=== PATIENT | male | born 1995 | race Caucasian/White ===

== ENCOUNTER → 2020-01-21 10:10 | Outpatient (BNVA) | payer OTHER, SELFPAY | PROVIDERS: PCP Internal Medicine; Visit Provider Physician Assistant Medical | DX: S33.9XXA Sprain of unspecified parts of lumbar spine and pelvis, initial encounter (principal); X50.0XXA Overexertion from strenuous movement or load, initial encounter | CPT/HCPCS: 99202 ==

== ENCOUNTER 2022-03-01 10:57 | Emergency (ER) | payer OTHER, SELFPAY ==
--- NOTE | ~2022-03-01 | XR_ITS ---
EXAMINATION: XR CHEST CLINICAL INFORMATION: Cough and congestion COMPARISON: Chest x-ray April 10, 2018 TECHNIQUE: 2 views of the chest were obtained. FINDINGS: Cardiac silhouette is normal in size. The lungs are well aerated. There is no lobar consolidation. No pleural effusion or pneumothorax. No acute osseous abnormality. XR/XR chest 2V IMPRESSION: No acute pulmonary pathology.
--- NOTE | 2022-03-01 11:39 | ED.URI ---
HPI - URI/Sore Throat General Chief Complaint: Upper Respiratory Symptoms <Erica Abdalla CNP - Last Filed: 03/01/22 11:47> Stated Complaint: coughing up phlegm, chest congestion <Erica Abdalla CNP - Last Filed: 03/01/22 11:47> Time Seen by Provider: 03/01/22 11:54 <Erica Abdalla CNP - Last Filed: 03/01/22 11:47> Source: patient <Rose Mary Acosta NP - Last Filed: 03/01/22 12:54> Mode of arrival: ambulatory <Rose Mary Acosta NP - Last Filed: 03/01/22 12:54> Limitations: no limitations <Rose Mary Acosta NP - Last Filed: 03/01/22 12:54> History of Present Illness HPI Narrative: 26 yo male with history of asthma,bronchitis here with 5 days of productive cough with yellow sputum with 48 hrs of fever initially none now. No diff breathing, chest pain, vomiting, diarrhea, skin rash, headache, neck pain or stiffness. <Rose Mary Acosta NP - Last Filed: 03/01/22 12:54> Related Data Home Medications: Previous Rx's Medication Instructions Recorded azithromycin 250 mg tablet See Rx Instructions PO .COMPLEX #6 03/01/22 tabs benzonatate 200 mg capsule 200 mg PO TID PRN cough #10 caps 03/01/22 prednisone 20 mg tablet 40 mg PO DAILY #10 tabs 03/01/22 <Erica Abdalla CNP - Last Filed: 03/01/22 11:47> Allergies/Adverse Reactions: Allergies Allergy/AdvReac Type Severity Reaction Status Date / Time No Known Allergies Allergy Verified 03/01/22 11:45 <Erica Abdalla CNP - Last Filed: 03/01/22 11:47> Review of Systems Review of Systems: Yes all other systems are reviewed and are negative <Rose Mary Acosta NP - Last Filed: 03/01/22 12:54> Constitutional: Constitutional: Reports no additional constitutional complaints, Denies body ache(s), Denies chills, Reports fever(s), Denies headache(s) and Denies weakness <Rose Mary Acosta NP - Last Filed: 03/01/22 12:54> Eyes: Eyes: Reports no additional eye complaints and Denies change in vision <Rose Mary Acosta NP - Last Filed: 03/01/22 12:54> ENT: Reports system reviewed and no additional complaints, except as documented, Denies dizziness, Denies headache(s), Denies nasal congestion, Denies nasal discharge and Denies neck pain <Rose Mary Acosta NP - Last Filed: 03/01/22 12:54> Cardiovascular: Cardiovascular: Reports no additional cardiovascular complaints, Denies chest pain, Denies leg edema and Denies dyspnea <Rose Mary Acosta NP - Last Filed: 03/01/22 12:54> Respiratory: Respiratory: Reports no additional respiratory complaints, Reports cough and Denies dyspnea <Rose Mary Acosta FOOD PROCESSOR - Last Filed: 03/01/22 12:54> Gastrointestinal: Gastrointestinal: Reports no additional gastrointestinal complaints, Denies abdominal pain, Denies diarrhea, Denies nausea and Denies vomiting <Rose Mary Acosta FOOD PROCESSOR - Last Filed: 03/01/22 12:54> Genitourinary: Genitourinary: Denies urinary incontinence <Rose Mary Acosta NP - Last Filed: 03/01/22 12:54> Musculoskeletal: Musculoskeletal: Reports no additional musculoskeletal complaints, Denies back pain, Denies arthralgias, Denies joint swelling, Denies neck pain, Denies numbness and Denies tingling <Rose Mary Acosta NP - Last Filed: 03/01/22 12:54> Integumentary/Breasts: Skin/Breast: Reports system reviewed and no additional complaints, except as docu and Denies rash <Rose Mary Acosta NP - Last Filed: 03/01/22 12:54> Neurologic: Reports system reviewed and no additional complaints, except as documented, Denies Abnormal speech present, Denies dizziness, Denies headache(s), Denies numbness, Denies tingling and Denies weakness <Rose Mary Acosta NP - Last Filed: 03/01/22 12:54> PMFSH Past Medical History Attestation statement: The following information was validated with the patient. <Rose Mary Acosta NP - Last Filed: 03/01/22 12:54> Source: old records reviewed and nursing notes reviewed <Rose Mary Acosta NP - Last Filed: 03/01/22 12:54> Social History Social History: Social History Advance Directives: No <Erica Abdalla CNP - Last Filed: 03/01/22 11:47> Physical Exam Vital Signs: Vital Signs: Last Vital Signs Temp 97.6 F 03/01/22 11:40 Pulse 96 03/01/22 11:40 Resp 18 03/01/22 11:40 BP 141/85 H 03/01/22 11:40 Pulse Ox 96 03/01/22 11:40 O2 Del Method 03/01/22 11:40 BMI result Body Mass Index 21.5 <Erica Abdalla CNP - Last Filed: 03/01/22 11:47> Vital Signs: Last Vital Signs Temp 97.6 F 03/01/22 11:40 Pulse 96 03/01/22 11:40 Resp 18 03/01/22 11:40 BP 141/85 H 03/01/22 11:40 Pulse Ox 96 03/01/22 11:40 O2 Del Method 03/01/22 11:40 BMI result Body Mass Index 21.5 <Rose Mary Acosta NP - Last Filed: 03/01/22 12:54> Const: General: cooperative, healthy appearing, comfortable and no acute distress <Rose Mary Acosta NP - Last Filed: 03/01/22 12:54> Orientation/consciousness: patient oriented x3 <Rose Mary Acosta NP - Last Filed: 03/01/22 12:54> Limitations: no limitations <Rose Mary Acosta NP - Last Filed: 03/01/22 12:54> HEENT: Head: Yes normal to inspection <Rose Mary Acosta NP - Last Filed: 03/01/22 12:54> Ears: hearing grossly normal bilaterally and TM's normal bilaterally <Rose Mary Acosta NP - Last Filed: 03/01/22 12:54> General nose exam: Normal external nose present <Rose Mary Acosta NP - Last Filed: 03/01/22 12:54> Face and sinus: Yes normal facial exam <Rose Mary Acosta FOOD PROCESSOR - Last Filed: 03/01/22 12:54> Mouth: Normal oral and palatal mucosa present <Rose Mary Acosta NP - Last Filed: 03/01/22 12:54> Throat: Yes posterior oropharynx normal, Yes tonsils normal and Yes uvula midline <Rose Mary Acosta FOOD PROCESSOR - Last Filed: 03/01/22 12:54> Eyes: General: appearance normal, both eyes and all related structures <Rose Mary Acosta NP - Last Filed: 03/01/22 12:54> Pupils: Equal, round and reactive pupils present <Rose Mary Acosta FOOD PROCESSOR - Last Filed: 03/01/22 12:54> Neck: Neck: Yes normal visual inspection <Rose Mary Acosta NP - Last Filed: 03/01/22 12:54> Chest: Chest palpation & inspection: normal inspection of the chest <Rose Mary Acosta NP - Last Filed: 03/01/22 12:54> Resp: Effort & Inspection: normal respiratory effort <Rose Mary Acosta NP - Last Filed: 03/01/22 12:54> Auscultation: clear to auscultation bilaterally <Rose Mary Acosta NP - Last Filed: 03/01/22 12:54> Cardio: Rate: regular rate <Rose Mary Acosta NP - Last Filed: 03/01/22 12:54> Rhythm: regular rhythm <Rose Mary Acosta NP - Last Filed: 03/01/22 12:54> Peripheral pulses: Peripheral pulses 2+ throughout <Rose Mary Acosta NP - Last Filed: 03/01/22 12:54> GI: Inspection: Yes normal to inspection <Rose Mary Acosta NP - Last Filed: 03/01/22 12:54> Palpation (GI): Soft to palpation and nontender <Rose Mary Acosta NP - Last Filed: 03/01/22 12:54> Auscultation: normal bowel sounds <Rose Mary Acosta NP - Last Filed: 03/01/22 12:54> Back/Spine/Pelvis: Thoracic/Lumbar Spine: thoracic and lumbar spine normal to inspection <Rose Mary Acosta NP - Last Filed: 03/01/22 12:54> Skin: General skin exam: no rashes or lesions noted <Rose Mary Acosta NP - Last Filed: 03/01/22 12:54> Neuro: General: patient oriented x3, no focal motor deficits and normal sensation to monofilament <Rose Mary Acosta FOOD PROCESSOR - Last Filed: 03/01/22 12:54> Cranial nerves: Yes Equal, round and reactive pupils present <Rose Mary Acosta NP - Last Filed: 03/01/22 12:54> Cognition (Neuro): normal cognition <Rose Mary Acosta NP - Last Filed: 03/01/22 12:54> Speech: No Abnormal speech present <Rose Mary Acosta NP - Last Filed: 03/01/22 12:54> Gait exam (Neuro): Normal gait present <Rose Mary Acosta NP - Last Filed: 03/01/22 12:54> Motor exam (neuro): 5/5 motor strength present throughout <Rose Mary Acosta NP - Last Filed: 03/01/22 12:54> Extrem: General: Yes normal to inspection, Yes no pedal edema and Yes no calf tenderness <Rose Mary Acosta NP - Last Filed: 03/01/22 12:54> Course Course Course Narrative: RME: Patient is a 26-year-old male with a past medical history of asthma presenting to emergency department evaluation of upper respiratory symptoms over the past 5 days. Initially had a fever resolved after the 1st 2 days. Currently reporting productive cough with yellow phlegm, postnasal drip, chest congestion. Has trialed Robitussin, home nebulizers and inhalers, Singulair, Mucinex without significant improvement. Reports history of bronchitis and states he is concern for pneumonia. PE: No apparent distress. Speaking clear full sentences. LSCTA. Plan: COVID-19 testing, influenza testing, chest x-ray <Erica Abdalla CNP - Last Filed: 03/01/22 11:47> Reevaluation(s) Reevaluation #1: 1250-Testing for influenza, covid testing. CXR negative for PNA. Will treat for bronchitis with antibiotic course, prednisone, cough suppressant. Reviewed worrisome signs/symptoms with patient and when to seek additional care. Comfortable with discharge home. <Rose Mary Acosta NP - Last Filed: 03/01/22 12:54> MDM - URI/Sore Throat MDM Narrative Medical decision making narrative: 26 yo male with history of asthma,bronchitis here with 5 days of productive cough with yellow sputum with 48 hrs of fever initially none now. No diff breathing, chest pain, vomiting, diarrhea, skin rash, headache, neck pain or stiffness. LS CTA. VSS. Will send testing flu, covid, CXR PERC 0 <Rose Mary Acosta NP - Last Filed: 03/01/22 12:54> Differential Diagnosis Differential diagnosis: Likely upper respiratory infection and bronchitis <Rose Mary Acosta NP - Last Filed: 03/01/22 12:54> Medical Records Attestation: I reviewed the patient's medical records. <Rose Mary Acosta NP - Last Filed: 03/01/22 12:54> Lab Data Attestation: I reviewed the patient's lab results. <Rose Mary Acosta NP - Last Filed: 03/01/22 12:54> Labs: Lab Results 03/01/22 03/01/22 Range/Units 11:47 11:47 COVID-19 ([facility]RELLA) Negative (Negative) COVID-19 Clin Com See Note Influenza Type A ([facility]) Negative (Negative) Influenza Type B ([facility]) Negative (Negative) Influenza A & B Note See Note <Erica Abdalla CNP - Last Filed: 03/01/22 11:47> Lab Results 03/01/22 03/01/22 Range/Units 11:47 11:47 COVID-19 ([facility]RELLA) Negative (Negative) COVID-19 Clin Com See Note Influenza Type A ([facility]) Negative (Negative) Influenza Type B ([facility]Y) Negative (Negative) Influenza A & B Note See Note <Rose Mary Acosta NP - Last Filed: 03/01/22 12:54> Imaging Data Chest x-ray: Attestation: I personally reviewed and interpreted this imaging study as follows: <Rose Mary Acosta NP - Last Filed: 03/01/22 12:54> Radiologist's impression: Launch?Image [place] [id number] XRay Report Signed Patient: Estrada Yarbrough MR#: [id number] : 1995 Acct:[id number] Age/Sex: 26 / M ADM Date: 03/01/22 Loc: HO.ED Attending Dr: Ordering Physician: Erica Abdalla CNP Date of Service: 03/01/22 Procedure(s): XR chest 2V Accession Number(s): [id number] cc: Erica Abdalla CNP~ EXAMINATION: XR CHEST CLINICAL INFORMATION: Cough and congestion COMPARISON: Chest x-ray April 10, 2018 TECHNIQUE: 2 views of the chest were obtained. FINDINGS: Cardiac silhouette is normal in size. The lungs are well aerated. There is no lobar consolidation. No pleural effusion or pneumothorax. No acute osseous abnormality. XR/XR chest 2V IMPRESSION: No acute pulmonary pathology. ? <Rose Mary Acosta NP - Last Filed: 03/01/22 12:54> Discharge Plan Discharge Clinical Impression: Bronchitis <Erica Abdalla CNP - Last Filed: 03/01/22 11:47> Patient Disposition: Home, Self-Care <Erica Abdalla CNP - Last Filed: 03/01/22 11:47> Instructions: Acute Bronchitis (ED) <Erica Abdalla CNP - Last Filed: 03/01/22 11:47> Additional Instructions: Testing for flu/covid are negative X-ray negative for pneumonia <Erica Abdalla CNP - Last Filed: 03/01/22 11:47> Prescriptions: New azithromycin 250 mg tablet See Rx Instructions .ROUTE .COMPLEX Qty: 6 0RF Rx Instructions: For 250 mg dose pack: take 500 mg today (day 1), then 250 mg for 4 days (days 2-5) prednisone 20 mg tablet 40 mg PO DAILY Qty: 10 0RF benzonatate 200 mg capsule 200 mg PO TID PRN (Reason: cough) Qty: 10 0RF <Erica Abdalla CNP - Last Filed: 03/01/22 11:47> Referrals: Freddy Mcdonald MD [Primary Care Provider] - 1 week <Erica Abdalla CNP - Last Filed: 03/01/22 11:47> Stand Alone Forms: Work/School Release <Erica Abdalla CNP - Last Filed: 03/01/22 11:47>
[2022-03-01 11:40] VITALS: BP 141/85; PULSE 96; RESP 18; TEMP 36.4; O2SAT 96; BMI 21.5
[2022-03-01 12:13] LABS: COVID-19 Test Negative (Negative); IDNOW Serial# 9DB6401D; IDNOW Serial# BCCEAD1C; Influenza A Negative (Negative); Influenza B2 Negative (Negative)
== END 2022-03-01 12:59 | disposition home or self-care (01) ==
PROVIDERS: Nurse Practitioner Family; Emergency Provider Emergency Medicine Emergency Medical Services; PCP Internal Medicine
DX: J40 Bronchitis, not specified as acute or chronic (principal); Z20.822 Contact with and (suspected) exposure to COVID-19
CPT/HCPCS: 71046; 87502; 87635; 99282; 99283

== ENCOUNTER 2022-03-21 11:40 | Outpatient (REF) | payer OTHER, SELFPAY ==
[2022-03-21 12:04] LABS: MANUAL DIFF FLAG NO
[2022-03-21 12:12] LABS: Basophils Percent Auto 0.5 % (0-2); Eosinophils Absolute Auto 0.1 X10*3/uL (0.0-0.4); Eosinophils Percent Auto 1.1 % (0-4); Hematocrit 45.5 % (42.0-52.0); Hemoglobin 14.8 g/dl (14.0-18.0); Imm Gran Abs Auto 0.02 X10*3/uL (0.00-0.03); Imm Gran Pct Auto 0.2 % (0.0-0.4); Lymphocytes Absolute Auto 1.2 X10*3/uL (1.2-4.9); Lymphocytes Percent Auto 14.5 % (20-40); Mean Corpuscular HGB Conc 32.5 g/dl (31.0-36.0); Mean Corpuscular Hemoglobin 28.6 pg (27.0-33.0); Mean Platelet Volume 10.6 fL (9.4-12.4); Monocytes Absolute Auto 0.8 X10*3/uL (0.1-1.2); Monocytes Percent Auto 8.8 % (2-11); Neutrophils Absolute Auto 6.4 x10*3/uL (2.0-8.3); Neutrophils Percent Auto 74.9 % (45-73); Platelet Count 261 X10*3/uL (160-400); Red Blood Count 5.17 X10*6/uL (4.60-5.80); Red Cell Distribution Width 12.7 % (11.0-16.0); White Blood Count 8.5 X10*3/uL (4.8-10.8)
[2022-03-21 12:21] LABS: D Dimer High Sensitivity 316 NG/ML
[2022-03-21 12:54] LABS: Erythrocyte Sedimentation Rate 2 MM/HR (0-15)
[2022-03-21 13:21] LABS: Anion Gap 13 (12-20); Blood Urea Nitrogen 15 mg/dL (9-16); Calcium 9.4 mg/dL (8.4-10.2); Carbon Dioxide 28 mmol/L (22-29); Chloride 104 mmol/L (96-108); Estimated Glomerular Filt Rate > 60; Glucose Random 135 mg/dL (60-115); Potassium 4.5 mmol/L (3.3-5.1); Sodium 140 mmol/L (135-145)
== END 2022-03-21 11:41 | disposition home or self-care (01) ==
LOC: HO.LAB 11:40
PROVIDERS: PCP Internal Medicine; Visit Provider Hospitalist
DX: J40 Bronchitis, not specified as acute or chronic (principal); J45.40 Moderate persistent asthma, uncomplicated; R07.81 Pleurodynia; R79.89 Other specified abnormal findings of blood chemistry
CPT/HCPCS: 36415; 80048; 82785; 85025; 85379; 85652; 86003; 99202

== ENCOUNTER 2022-03-22 11:19 | Outpatient (REF) | payer OTHER, SELFPAY ==
--- NOTE | ~2022-03-22 | CT_ITS ---
EXAMINATION: CT ANGIOGRAM OF THE CHEST WITH AND WITHOUT CONTRAST (CT PULMONARY ANGIOGRAM FOR PE) CLINICAL INFORMATION: Reason for Exam R07.81 - Pleurodynia COMPARISON: Previous chest x-ray February 2022 TECHNIQUE: Prior to contrast administration, noncontrast localization images were obtained. Subsequently, multidetector volumetric imaging was performed from the thoracic inlet to below the diaphragms following the administration of 60 mL Omnipaque 350 intravenous contrast. No contrast reaction reported Sagittal, coronal, and MIP oblique sagittal reformatted images were obtained on the CT workstation, uploaded to PACS, and reviewed. This CT examination was performed using dose optimization techniques as appropriate, variously including the following: *Automated exposure control *Adjustment of mA and/or kV according to patient size (this includes techniques or standardized protocols for targeted exams where dose is matched to indication/reason for exam; i.e. extremities or head) *Use of iterative reconstruction technique Total exam dose-length product 140 mGy-cm FINDINGS: QUALITY OF STUDY/CONTRAST BOLUS: Satisfactory. PULMONARY ARTERIES: No central or segmental pulmonary emboli. THORACIC AORTA: No aneurysm or dissection. LUNG: Mild bronchial wall thickening. No pneumonia. PLEURA: No pleural effusion or pneumothorax. MEDIASTINUM: Normal heart size. No pericardial effusion. Small mediastinal and left hilar lymph nodes. No enlarged lymph nodes.. No evidence of septal bowing or right heart strain. CHEST WALL/AXILLA: No axillary or internal mammary lymphadenopathy. OSSEOUS STRUCTURES: No acute or suspicious osseous abnormality. UPPER ABDOMEN: Unremarkable. No reflux of contrast into the hepatic veins to suggest elevated right heart pressures. CT/CT angio chest PE protocol IMPRESSION: No evidence of pulmonary embolism. Mild bronchial wall thickening. No evidence of pneumonia. Small mediastinal and left hilar lymph nodes. VTE: negative
[2022-03-22] MEDS: iohexoL 350 MG/ML 100 ML INFUS..BTL 60 ML IV (12:15)
== END 2022-03-22 11:20 | disposition home or self-care (01) ==
LOC: HO.CT 11:19
PROVIDERS: PCP Internal Medicine; Visit Provider Hospitalist
DX: R07.81 Pleurodynia (principal); R78.89 Finding of other specified substances, not normally found in blood
CPT/HCPCS: 71275; Q9967

== ENCOUNTER 2022-03-29 07:52 | Outpatient (REF) | payer OTHER, SELFPAY | END 2022-03-29 07:53 | disposition home or self-care (01) | LOC: HO.RESP 07:52 | PROVIDERS: PCP Internal Medicine; Visit Provider Hospitalist | DX: R07.81 Pleurodynia (principal); J45.40 Moderate persistent asthma, uncomplicated; J40 Bronchitis, not specified as acute or chronic | CPT/HCPCS: 87070; 87205; 94060; 94727; 94729 ==

== ENCOUNTER → 2022-04-11 10:05 | Outpatient (BNVA) | payer OTHER, SELFPAY | PROVIDERS: PCP Internal Medicine; Visit Provider Hospitalist | DX: J45.50 Severe persistent asthma, uncomplicated (principal); J40 Bronchitis, not specified as acute or chronic; R07.81 Pleurodynia; Z79.899 Other long term (current) drug therapy | CPT/HCPCS: 99212 ==

== ENCOUNTER 2022-10-25 09:30 | Outpatient (AMB) | payer OTHER, SELFPAY ==
[2022-10-25 09:32] VITALS: BP 124/66; PULSE 66; O2SAT 95; BMI 24.9
--- NOTE | 2022-10-25 09:32 | MHC.OFFVIS ---
Intake Vital Signs 10/25/22 09:32 Height 5 ft 11 in Weight 178 lb 9.191 oz BMI 24.9 BP 124/66 Blood Pressure Location Rt brachial Position Sitting Pulse 66 Pulse Source Pulse Oximeter Pulse Oximetry (%) 95 Oxygen Delivery Method Room Air Intake Visit Reasons: [facility] Director Required: No Allergies No Known Allergies Allergy (Verified 10/25/22 09:35) HPI HPI Comments History of Present Illness Details The patient is a 27-year-old gentleman with a lifelong history of asthma. Apparently was in usual state health until sometime in the another member when he started developing worsening shortness of breath cough. Having significant wheezing. His symptoms were severe. He went to the ER for further evaluation. There he had a chest x-ray demonstrating hyperinflation of the lungs. He tested negative for RSV, flu and COVID-19. He was treated with a prednisone course in addition to Z-Aguila and given benzonatate. He was not feeling any better continue to uses nebulizer a daily basis. He got some Symbicort from his sister and felt that it was helping him. Now he still complains some shortness of breath and now complaining of pleuritic discomfort primarily his right mid chest. He feels the pain travels from the back to the front. The pain is not reproducible. Based on the fact that his pulse ox was also slightly decreased to 94% and with a normal chest x-ray did request blood work including D-dimer. The D-dimer came back elevated therefore patient needs to ruled out for a thromboembolic event. His pleuritic chest pain is moderate severity. Definite stops in from breathing deeply. As far as his wheezing and chest tightness that is improved. He does have productive cough. He was yellowish in color but now is clearing up some. As far as allergies the patient has had allergy testing many years ago he was noted to have significant allergies. He was offered allergy shots but the patient did not have the time to commit that time. He is currently taking Singulair and as-needed antihistamines. 04/11/2022 the patient is here for a pulmonary follow-up visit. Overall he is feeling a lot better. He continues uses Symbicort as prescribed. Also has the singular medication. Has not required any prednisone. He does have a rescue inhaler that he typically does not use more than twice a week. The patient did have blood work including allergy testing demonstrating significant allergies to environmental allergens in addition to mold. His IgE level was above 800. He is eosinophil level was within normal limits. The patient likely has significant allergic asthma. His pulmonary function studies also demonstrated uncontrolled asthma. Significant small airways disease suggesting the severity of his asthma in addition to that he did undergo a CT scan of the chest that I personally reviewed him. No evidence of any pulmonary emboli. Although he did have significant mosaic pattern consistent with his small airways disease and also significant bronchitis. This is all related to his asthma. At this point the patient is doing well. We did talk about additional therapies including adding muscarinic antagonist. In addition to that he would benefit from allergy shots. Although is difficult making the time for that. The other option for him in the future if he worsens will be to start biologic therapy. Will continue to monitor him closely at this time as he continues his allergy medicines and his maintenance respiratory inhalers. 10/25/2022 the patient is here for pulmonary follow-up visit. The patient is feeling well. He is using the Symbicort every other day. He has not had to use his rescue medicine. We did go over his allergies. He has significant allergies. Specially to mold and dust mites. He does have any appear far not the humidifier running in the house. This has been helpful. She also has a dog that is very allergic to. He has been on allergy medication. Does not need any biologic therapies at this time. The patient will continue his current Symbicort dose. Although, he knows to increase does prior to transitioning over to a different season. The patient usually has worsening symptoms in the winter time. He will call if he has any issues otherwise will see him in a year from now [facility] Medical History (Updated 04/11/22 @ 19:27 by Mehdi Bridges MD) Asthma Bronchitis Pleuritic chest pain Social History Patient Tobacco Use Status: Never used Tobacco Review of Systems Const Denies fever(s) Eyes Denies change in vision ENT Reports nasal congestion and Reports nasal discharge Card Denies chest pain Resp Denies change in phlegm color, Denies chest congestion, Reports cough, Denies pain on inspiration, Denies pain with cough and Denies wheezing GI Reports no additional complaints Musc Reports no additional complaints Skin/Breast Denies rash Neuro Reports no additional complaints Tariq/Lymph Denies easy bleeding and Denies easy bruising Aller/Immun Denies wheezing Physical Exam Vital Signs: Last Vital Signs Pulse 66 10/25/22 09:32 BP 124/66 10/25/22 09:32 Pulse Ox 95 10/25/22 09:32 Oxygen Delivery Method Room Air 10/25/22 09:32 BMI result Body Mass Index 24.9 Const General: comfortable HEENT Head: Yes atraumatic Eyes General: appearance normal, both eyes and all related structures Neck Neck: Yes supple Chest Chest palpation & inspection: normal inspection of the chest Resp Effort & Inspection: normal respiratory effort Auscultation: clear to auscultation bilaterally, no rales, no rhonchi and no wheezes GI Auscultation: normal bowel sounds Skin General skin exam: no rashes or lesions noted Extrem General: Yes no clubbing, cyanosis or edema Assessment & Plan Assessment & Plan (1) Asthma: Code(s): J45.909 - Unspecified asthma, uncomplicated Qualifiers: Asthma complication type: uncomplicated Asthma persistence: persistent Asthma severity: severe Qualified Code(s): J45.50 - Severe persistent asthma, uncomplicated (2) Pleuritic chest pain: Comment: better Code(s): R07.81 - Pleurodynia Plan continue Symbicort continue Singulair Zyrte AM Consider Biologic therapy if worsens Follow-up in 12 months Coding Level of Care Code Est Pt Level 4 (25354) Diagnoses Asthma J45.50 Asthma complication type: uncomplicated Asthma persistence: persistent Asthma severity: severe Pleuritic chest pain R07.81 Time Spent (min) 17
== END 2022-10-25 09:54 | disposition home or self-care (01) ==
PROVIDERS: PCP Internal Medicine; Visit Provider Hospitalist
DX: J45.50 Severe persistent asthma, uncomplicated (principal); R07.81 Pleurodynia
CPT/HCPCS: 99214

== ENCOUNTER → 2022-10-25 09:30 | Outpatient (BNVA) | payer OTHER, SELFPAY | PROVIDERS: PCP Internal Medicine; Visit Provider Hospitalist | DX: J45.50 Severe persistent asthma, uncomplicated (principal); R07.81 Pleurodynia; Z79.899 Other long term (current) drug therapy | CPT/HCPCS: 99212 ==

== ENCOUNTER 2023-07-25 10:41 | Outpatient (REF) | payer OTHER, SELFPAY ==
[2023-07-25 10:45] LABS: MANUAL DIFF FLAG NO
[2023-07-25 11:04] LABS: Basophils Absolute Auto 0.1 X10*3/uL (0.0-0.2); Basophils Percent Auto 1.2 % (0-2); Eosinophils Absolute Auto 0.5 X10*3/uL (0.0-0.4); Eosinophils Percent Auto 6.3 % (0-4); Hematocrit 44.9 % (42.0-52.0); Imm Gran Abs Auto 0.02 X10*3/uL (0.00-0.03); Imm Gran Pct Auto 0.3 % (0.0-0.4); Lymphocytes Absolute Auto 2.4 X10*3/uL (1.2-4.9); Mean Corpuscular HGB Conc 33.4 g/dl (31.0-36.0); Mean Corpuscular Hemoglobin 29.1 pg (27.0-33.0); Mean Corpuscular Volume 87.2 fL (80.0-98.0); Mean Platelet Volume 11.8 fL (9.4-12.4); Monocytes Absolute Auto 0.9 X10*3/uL (0.1-1.2); Monocytes Percent Auto 11.4 % (2-11); Neutrophils Absolute Auto 3.9 x10*3/uL (2.0-8.3); Neutrophils Percent Auto 49.8 % (45-73); Platelet Count 288 X10*3/uL (160-400); Red Blood Count 5.15 X10*6/uL (4.60-5.80); Red Cell Distribution Width 12.6 % (11.0-16.0); White Blood Count 7.7 X10*3/uL (4.8-10.8)
[2023-07-25 11:08] LABS: Appearance Urine Clear; Color Urine Yellow; Glucose Urine UA Negative (Negative); Leukocyte Esterase Urine Negative (Negative); Nitrite Urine Negative (Negative); PH 5.5 (5.0-9.0); Specific Gravity - Urine >= 1.030 (1.005-1.025); Urine Blood Negative (Negative); Urine Ketones Negative (Negative); Urine Protein Negative (Neg-Trace)
[2023-07-25 11:15] LABS: Bacteria Urine None Seen (None Seen); Hyaline Casts Urine 0-2 /LPF (0-2); RBC Urine 0-2 /HPF (0-2); Squamous Epithelial Cell Urine 0-2 /HPF (0-2); WBC Urine 0-5 /HPF (0-5)
[2023-07-25 12:08] LABS: Alanine Aminotransferase 28 U/L (0-40); Albumin Level 4.4 g/dL (3.5-5.0); Alkaline Phosphatase 76 U/L (39-117); Anion Gap 11 (12-20); Aspartate Amino Transferase 25 U/L (5-37); Bilirubin Total 0.4 mg/dL (0.0-1.0); Blood Urea Nitrogen 15 mg/dL (9-16); Calcium 9.4 mg/dL (8.4-10.2); Carbon Dioxide 27 mmol/L (22-29); Chloride 107 mmol/L (96-108); Cholesterol 182 mg/dL (<200); Estimated Glomerular Filt Rate > 60; Glucose Fasting 104 mg/dL (60-99); HDL Cholesterol 38 mg/dL (>40); LDL Cholesterol Calculated 124 mg/dL (<100); Potassium 4.2 mmol/L (3.3-5.1); Sodium 141 mmol/L (135-145); Total Protein 6.7 g/dL (6.5-8.0); Triglycerides 102 mg/dL (<150)
== END 2023-07-25 10:42 | disposition home or self-care (01) ==
LOC: HO.LNP 10:41
PROVIDERS: Visit Provider Internal Medicine
DX: Z00.00 Encounter for general adult medical examination without abnormal findings (principal)
CPT/HCPCS: 80053; 80061; 81001; 85025

== ENCOUNTER 2023-08-21 14:40 | Outpatient (AMB) | payer OTHER, SELFPAY ==
[2023-08-21 14:46] VITALS: PULSE 68; O2SAT 95; BMI 25.1
--- NOTE | 2023-08-21 14:46 | MHC.OFFVIS ---
Vital Signs 08/21/23 14:46 Height 5 ft 11 in Weight 180 lb BMI 25.1 Pulse 68 Pulse Source Pulse Oximeter Pulse Oximetry (%) 95 Oxygen Delivery Method Room Air Intake Visit Reasons: asthma exacerbation Manager Sql Required: No Allergies No Known Allergies Allergy (Verified 08/21/23 14:47) HPI Comments Details: The patient is a 28-year-old gentleman with a lifelong history of asthma. Apparently was in usual state health until sometime in the another member when he started developing worsening shortness of breath cough. Having significant wheezing. His symptoms were severe. He went to the ER for further evaluation. There he had a chest x-ray demonstrating hyperinflation of the lungs. He tested negative for RSV, flu and COVID-19. He was treated with a prednisone course in addition to Z-Aguila and given benzonatate. He was not feeling any better continue to uses nebulizer a daily basis. He got some Symbicort from his sister and felt that it was helping him. Now he still complains some shortness of breath and now complaining of pleuritic discomfort primarily his right mid chest. He feels the pain travels from the back to the front. The pain is not reproducible. Based on the fact that his pulse ox was also slightly decreased to 94% and with a normal chest x-ray did request blood work including D-dimer. The D-dimer came back elevated therefore patient needs to ruled out for a thromboembolic event. His pleuritic chest pain is moderate severity. Definite stops in from breathing deeply. As far as his wheezing and chest tightness that is improved. He does have productive cough. He was yellowish in color but now is clearing up some. As far as allergies the patient has had allergy testing many years ago he was noted to have significant allergies. He was offered allergy shots but the patient did not have the time to commit that time. He is currently taking Singulair and as-needed antihistamines. 04/11/2022 the patient is here for a pulmonary follow-up visit. Overall he is feeling a lot better. He continues uses Symbicort as prescribed. Also has the singular medication. Has not required any prednisone. He does have a rescue inhaler that he typically does not use more than twice a week. The patient did have blood work including allergy testing demonstrating significant allergies to environmental allergens in addition to mold. His IgE level was above 800. He is eosinophil level was within normal limits. The patient likely has significant allergic asthma. His pulmonary function studies also demonstrated uncontrolled asthma. Significant small airways disease suggesting the severity of his asthma in addition to that he did undergo a CT scan of the chest that I personally reviewed him. No evidence of any pulmonary emboli. Although he did have significant mosaic pattern consistent with his small airways disease and also significant bronchitis. This is all related to his asthma. At this point the patient is doing well. We did talk about additional therapies including adding muscarinic antagonist. In addition to that he would benefit from allergy shots. Although is difficult making the time for that. The other option for him in the future if he worsens will be to start biologic therapy. Will continue to monitor him closely at this time as he continues his allergy medicines and his maintenance respiratory inhalers. 10/25/2022 the patient is here for pulmonary follow-up visit. The patient is feeling well. He is using the Symbicort every other day. He has not had to use his rescue medicine. We did go over his allergies. He has significant allergies. Specially to mold and dust mites. He does have any appear far not the humidifier running in the house. This has been helpful. She also has a dog that is very allergic to. He has been on allergy medication. Does not need any biologic therapies at this time. The patient will continue his current Symbicort dose. Although, he knows to increase does prior to transitioning over to a different season. The patient usually has worsening symptoms in the winter time. He will call if he has any issues otherwise will see him in a year from now 08/21/2023 the patient is here for a pulmonary follow-up visit. The patient has been in his usual state health until the last 5 days when he started developing worsening respiratory illness. He has been coughing more having chest congestion. Chest tightness. He has been having to use his Symbicort now regularly twice a day. Also has to use the albuterol in between. Denies any fevers or chills. Positive sick contacts. His actively coughing in the room. He does have diminished breath sounds with a prolonged expiratory phase and some rhonchi. Patient will require some antibiotics at this time. She will continue to use her respiratory medicines. The patient is no better, then, he could start a Medrol pack. Patient should return in 6-8 months. If any worsening symptoms he will call for an earlier assessment. [facility] Medical History (Updated 08/21/23 @ 22:10 by Mehdi Bridges MD) Pleuritic chest pain Bronchitis Asthma Social History Patient Tobacco Use Status: Never used Tobacco Review of Systems Const Denies fever(s) Eyes Denies change in vision ENT Reports nasal congestion and Reports nasal discharge Card Denies chest pain Resp Reports change in phlegm color, Reports chest congestion, Reports cough, Denies pain on inspiration, Denies pain with cough and Reports wheezing GI Reports no additional complaints Musc Reports no additional complaints Skin/Breast Denies rash Neuro Reports no additional complaints Tariq/Lymph Denies easy bleeding and Denies easy bruising Aller/Immun Reports wheezing Physical Exam Vital Signs: Last Vital Signs Pulse 68 08/21/23 14:46 Pulse Ox 95 08/21/23 14:46 Oxygen Delivery Method Room Air 08/21/23 14:46 BMI result Body Mass Index 25.1 Const General: comfortable HEENT Head: Yes atraumatic Eyes General: appearance normal, both eyes and all related structures Neck Neck: Yes supple Chest Chest palpation & inspection: normal inspection of the chest Resp Effort & Inspection: normal respiratory effort and Actively coughing Quality: actively coughing Auscultation: clear to auscultation bilaterally, no rales, no rhonchi and wheezes GI Auscultation: normal bowel sounds Skin General skin exam: no rashes or lesions noted Extrem General: Yes no clubbing, cyanosis or edema Assessment & Plan Assessment & Plan (1) Asthma: Code(s): J45.909 - Unspecified asthma, uncomplicated Category: Medical Qualifiers: Asthma complication type: with acute exacerbation Asthma persistence: persistent Asthma severity: moderate Qualified Code(s): J45.41 - Moderate persistent asthma with (acute) exacerbation (2) Bronchitis: Code(s): J40 - Bronchitis, not specified as acute or chronic Category: Medical Plan continue Symbicort continue Singulair BRANDY as needed Zyrtec AM start Zpack Medrol pk if no better Consider Biologic therapy if worsens Follow-up in 12 months Medications: New azithromycin 500 mg PO DAILY 5 tabs 0RF 5 days methylprednisolone (Medrol (Aguila)) PO PER PKG DIR 21 ea 0RF 6 days Changed From albuterol sulfate 90 mcg/actuation 2 puffs inhalation Q4-6H PRN 1 ea 0RF shortness of breath or wheezing NS To albuterol sulfate 90 mcg/actuation 2 puffs inhalation Q6H PRN 1 ea 11RF shortness of breath or wheezing 30 days NS Refilled budesonide-formoterol 160-4.5 mcg/actuation (Symbicort) 2 puffs inhalation BID 10.2 grams 11RF 30 days Coding Level of Care Code Est Pt Level 4 (20929) Diagnoses Moderate persistent asthma with acute exacerbation J45.41 Asthma complication type: with acute exacerbation Asthma persistence: persistent Asthma severity: moderate Bronchitis J40 Time Spent (min) 16
== END 2023-08-21 15:05 | disposition home or self-care (01) ==
PROVIDERS: PCP Internal Medicine; Visit Provider Hospitalist
DX: J45.41 Moderate persistent asthma with (acute) exacerbation (principal); J40 Bronchitis, not specified as acute or chronic
CPT/HCPCS: 99214

== ENCOUNTER → 2023-08-21 14:40 | Outpatient (BNVA) | payer OTHER, SELFPAY | PROVIDERS: PCP Internal Medicine; Visit Provider Hospitalist ==

== ENCOUNTER 2024-03-15 14:42 | Outpatient (AMB) | payer OTHER, SELFPAY ==
[2024-03-15 14:45] VITALS: BP 118/82; PULSE 63; O2SAT 97; BMI 25.1
--- NOTE | 2024-03-15 14:45 | A.OFFVIS_ITS ---
Vital Signs 03/15/24 14:45 Height 5 ft 11 in Weight 179 lb 10.828 oz BMI 25.1 BP 118/82 Blood Pressure Location Lt brachial Position Sitting Pulse 63 Pulse Source Doppler Pulse Oximetry (%) 97 Oxygen Delivery Method Room Air Intake Visit Reasons: asthma Allergies No Known Allergies Allergy (Verified 03/15/24 14:48) HPI Comments Details: The patient is a 28-year-old gentleman with a lifelong history of asthma. Apparently was in usual state health until sometime in the another member when he started developing worsening shortness of breath cough. Having significant wheezing. His symptoms were severe. He went to the ER for further evaluation. There he had a chest x-ray demonstrating hyperinflation of the lungs. He tested negative for RSV, flu and COVID-19. He was treated with a prednisone course in addition to Z-Aguila and given benzonatate. He was not feeling any better continue to uses nebulizer a daily basis. He got some Symbicort from his sister and felt that it was helping him. Now he still complains some shortness of breath and now complaining of pleuritic discomfort primarily his right mid chest. He feels the pain travels from the back to the front. The pain is not reproducible. Based on the fact that his pulse ox was also slightly decreased to 94% and with a normal chest x-ray did request blood work including D-dimer. The D-dimer came back elevated therefore patient needs to ruled out for a thromboembolic event. His pleuritic chest pain is moderate severity. Definite stops in from breathing deeply. As far as his wheezing and chest tightness that is improved. He does have productive cough. He was yellowish in color but now is clearing up some. As far as allergies the patient has had allergy testing many years ago he was noted to have significant allergies. He was offered allergy shots but the patient did not have the time to commit that time. He is currently taking Singulair and as-needed antihistamines. 04/11/2022 the patient is here for a pulmonary follow-up visit. Overall he is feeling a lot better. He continues uses Symbicort as prescribed. Also has the singular medication. Has not required any prednisone. He does have a rescue inhaler that he typically does not use more than twice a week. The patient did have blood work including allergy testing demonstrating significant allergies to environmental allergens in addition to mold. His IgE level was above 800. He is eosinophil level was within normal limits. The patient likely has significa nt allergic asthma. His pulmonary function studies also demonstrated uncontrolled asthma. Significant small airways disease suggesting the severity of his asthma in addition to that he did undergo a CT scan of the chest that I personally reviewed him. No evidence of any pulmonary emboli. Although he did have significant mosaic pattern consistent with his small airways disease and also significant bronchitis. This is all related to his asthma. At this point the patient is doing well. We did talk about additional therapies including adding muscarinic antagonist. In addition to that he would benefit from allergy shots. Although is difficult making the time for that. The other option for him in the future if he worsens will be to start biologic therapy. Will continue to monitor him closely at this time as he continues his allergy medicines and his maintenance respiratory inhalers. 10/25/2022 the patient is here for pulmonary follow-up visit. The patient is feeling well. He is using the Symbicort every other day. He has not had to use his rescue medicine. We did go over his allergies. He has significant allergies. Specially to mold and dust mites. He does have any appear far not the humidifier running in the house. This has been helpful. She also has a dog that is very allergic to. He has been on allergy medication. Does not need any biologic therapies at this time. The patient will continue his current Symbicort dose. Although, he knows to increase does prior to transitioning over to a different season. The patient usually has worsening symptoms in the winter time. He will call if he has any issues otherwise will see him in a year from now 08/21/2023 the patient is here for a pulmonary follow-up visit. The patient has been in his usual state health until the last 5 days when he started developing worsening respiratory illness. He has been coughing more having chest congestion. Chest tightness. He has been having to use his Symbicort now r egularly twice a day. Also has to use the albuterol in between. Denies any fevers or chills. Positive sick contacts. His actively coughing in the room. He does have diminished breath sounds with a prolonged expiratory phase and some rhonchi. Patient will require some antibiotics at this time. She will continue to use her respiratory medicines. The patient is no better, then, he could start a Medrol pack. Patient should return in 6-8 months. If any worsening symptoms he will call for an earlier assessment. 03/15/2024 the patient is here for a pulmonary follow-up visit. Overall he is feeling better. Although beginning of the fall was hard for him. He has had developing worsening chest tightness and coughing wheezing. Moderate severity. He had been using his nebulizer up to 3 times a day. Now has gotten better. Although he still bringing up some productive phlegm. Yellowish in color. He has been using Flovent and also Symbicort. Did do not seem to be holding him. He does get bad allergies with significant eosinophilia and elevated IgE. Consistent with eosinophilic bronchitis. Still the patient is reluctant to use biologics. Will going to go ahead and optimize his respiratory therapy by switching her over to Trelegy. He can also continue his Singulair. If he continues to have symptoms on the maximum respiratory therapy then biologics will be a good option for him. [facility] Medical History (Updated 08/21/23 @ 22:10 by Mehdi Bridges MD) Pleuritic chest pain Bronchitis Asthma Social History Patient Tobacco Use Status: Never used Tobacco Review of Systems Const Denies fever(s) Eyes Denies change in vision ENT Reports nasal congestion and Reports nasal discharge Card Denies chest pain Resp Reports change in phlegm color, Reports chest congestion, Reports cough, Denies pain on inspiration, Denies pain with cough and Reports wheezing GI Reports no additional complaints Musc Reports no additional complaints Skin/Breast Denies rash Neuro Reports no additional complaints Tariq/Lymph Denies easy bleeding and Denies easy bruising Aller/Immun Reports wheezing Physical Exam Vital Signs: Last Vital Signs Pulse 63 03/15/24 14:45 BP 118/82 03/15/24 14:45 Pulse Ox 97 03/15/24 14:45 Oxygen Delivery Method Room Air 03/15/24 14:45 BMI result Body Mass Index 25.1 Const General: comfortable HEENT Head: Yes atraumatic Eyes General: appearance normal, both eyes and all related structures Neck Neck: Yes supple Chest Chest palpation & inspection: normal inspection of the chest Resp Effort & Inspection: normal respiratory effort Auscultation: no rales, no rhonchi, wheezes and diminished lung sounds GI Auscultation: normal bowel sounds Skin General skin exam: no rashes or lesions noted Extrem General: Yes no clubbing, cyanosis or edema Assessment & Plan Assessment & Plan (1) Asthma: Code(s): J45.909 - Unspecified asthma, uncomplicated Category: Medical Qualifiers: Asthma complication type: with acute exacerbation Asthma persistence: persistent Asthma severity: moderate Qualified Code(s): J45.41 - Moderate persistent asthma with (acute) exacerbation (2) Bronchitis: Code(s): J40 - Bronchitis, not specified as acute or chronic Category: Medical Plan stop Symbicort start Trelegy 200mcg continue Singulair BRANDY as needed Zyrtec AM start doxycycline Medrol pk if no better Consider Biologic therapy if worsens: would benefit from Dupixent Follow-up in 6-8 months Medications: New doxycycline hyclate 100 mg PO BID 20 caps 0RF 10 days dahnwbtaobi-[id number]-kiukuxcm 200-62.5-25 mcg (Trelegy Ellipta) 1 inh inhalation DAILY 60 ea 12RF 30 days Changed From montelukast 10 mg PO BEDTIME To montelukast 10 mg PO BEDTIME 90 tabs 3RF 90 days Refilled albuterol sulfate 90 mcg/actuation 2 puffs inhalation Q6H PRN 1 ea 11RF shortness of breath or wheezing 30 days NS methylprednisolone (Medrol (Aguila)) PO PER PKG DIR 21 ea 0RF 6 days Coding Level of Care Code Est Pt Level 4 (95645) Diagnoses Moderate persistent asthma with acute exacerbation J45.41 Asthma complication type: with acute exacerbation Asthma persistence: persistent Asthma severity: moderate Bronchitis J40 Time Spent (min) 16
== END 2024-03-15 15:11 | disposition home or self-care (01) ==
PROVIDERS: PCP Internal Medicine; Visit Provider Hospitalist
DX: J45.41 Moderate persistent asthma with (acute) exacerbation (principal); J40 Bronchitis, not specified as acute or chronic
CPT/HCPCS: 99214

== ENCOUNTER 2024-06-28 08:59 | Outpatient (AMB) | payer OTHER, SELFPAY ==
--- NOTE | 2024-06-28 09:04 | MHC.OFFVIS ---
Vital Signs 06/28/24 09:06 Height 5 ft 11 in Weight 176 lb BMI 24.5 BP 132/72 Blood Pressure Location Lt brachial Position Sitting Pulse 72 Intake Visit Reasons: Infected toe Intake Note: Patient new consult for Infected toe. Patient cc red/swelling toe, with some blood time to time. 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 He sustained trauma to his right great toe and this was infected. It was given local wound care and antibiotics by his medical doctor. He presents here for follow-up. He states his symptoms have markedly improved. Chart was reviewed and patient evaluated [facility] Medical History (Updated 08/21/23 @ 22:10 by Mehdi Bridges MD) Pleuritic chest pain Bronchitis Asthma Social History Patient Tobacco Use Status: Never used Tobacco Physical Exam Vital Signs: Last Vital Signs Pulse 72 06/28/24 09:06 BP 132/72 06/28/24 09:06 BMI result Body Mass Index 24.5 Extrem Other: Patient has a resolving cellulitic process involving the medial aspect of the right great toe. No evidence of any infection, abscess, or cellulitis. Eschar along the medial aspect of the nail bed Assessment & Plan Assessment & Plan (1) Infected abrasion of great toe of right foot: Code(s): S90.411A - Abrasion, right great toe, initial encounter; L08.9 - Local infection of the skin and subcutaneous tissue, unspecified Category: Surgical Plan Patient was been given local instructions, and will otherwise follow-up p.r.n.. All questions answered. Coding Level of Care Code New Pt Level 4 (33601) Diagnoses Infected abrasion of great toe of right foot S90.411A; L08.9
[2024-06-28 09:06] VITALS: BP 132/72; PULSE 72; BMI 24.5
== END 2024-06-28 09:20 | disposition home or self-care (01) ==
LOC: HO.HGS 08:59
PROVIDERS: PCP Internal Medicine; Visit Provider Surgery
DX: S90.411A Abrasion, right great toe, initial encounter (principal); L08.9 Local infection of the skin and subcutaneous tissue, unspecified
CPT/HCPCS: 99204

== ENCOUNTER → 2024-06-28 08:59 | Outpatient (BNVA) | payer OTHER, SELFPAY | PROVIDERS: PCP Internal Medicine; Visit Provider Surgery ==

== ENCOUNTER 2024-07-29 10:47 | Outpatient (REF) | payer OTHER, SELFPAY ==
[2024-07-29 11:10] LABS: Basophils Absolute Auto 0.1 X10*3/uL (0.0-0.2); Basophils Percent Auto 0.7 % (0-2); Eosinophils Absolute Auto 0.2 X10*3/uL (0.0-0.4); Eosinophils Percent Auto 1.8 % (0-4); Hematocrit 41.4 % (42.0-52.0); Imm Gran Abs Auto 0.04 X10*3/uL (0.00-0.03); Imm Gran Pct Auto 0.3 % (0.0-0.4); Lymphocytes Absolute Auto 1.9 X10*3/uL (1.2-4.9); Lymphocytes Percent Auto 14.5 % (20-40); MANUAL DIFF FLAG SCAN; Mean Corpuscular HGB Conc 33.8 g/dl (31.0-36.0); Mean Corpuscular Hemoglobin 29.2 pg (27.0-33.0); Mean Corpuscular Volume 86.3 fL (80.0-98.0); Mean Platelet Volume 12.1 fL (9.4-12.4); Monocytes Absolute Auto 1.6 X10*3/uL (0.1-1.2); Neutrophils Absolute Auto 9.2 x10*3/uL (2.0-8.3); Neutrophils Percent Auto 70.7 % (45-73); Platelet Count 257 X10*3/uL (160-400); Red Cell Distribution Width 12.7 % (11.0-16.0); SCAN SMEAR FLAG 1
[2024-07-29 11:17] LABS: Appearance Urine Clear; Color Urine Yellow; Glucose Urine UA Negative (Negative); Leukocyte Esterase Urine Negative (Negative); Nitrite Urine Negative (Negative); PH 5.5 (5.0-9.0); Specific Gravity - Urine >= 1.030 (1.005-1.025); Urine Blood Negative (Negative); Urine Ketones Negative (Negative); Urine Protein Negative (Neg-Trace)
[2024-07-29 11:22] LABS: Bacteria Urine None Seen (None Seen); Hyaline Casts Urine 0-2 /LPF (0-2); RBC Urine 0-2 /HPF (0-2); Squamous Epithelial Cell Urine 0-2 /HPF (0-2); WBC Urine 0-5 /HPF (0-5)
[2024-07-29 11:36] LABS: Alanine Aminotransferase 25 U/L (0-40); Albumin Level 4.2 g/dL (3.5-5.0); Alkaline Phosphatase 63 U/L (39-117); Anion Gap 9 (12-20); Aspartate Amino Transferase 20 U/L (5-37); Blood Urea Nitrogen 14 mg/dL (9-16); Calcium 9.3 mg/dL (8.4-10.2); Carbon Dioxide 29 mmol/L (22-29); Chloride 107 mmol/L (96-108); Cholesterol 170 mg/dL (<200); Estimated Glomerular Filt Rate > 60; Glucose Fasting 113 mg/dL (60-99); HDL Cholesterol 42 mg/dL (>40); LDL Cholesterol Calculated 112 mg/dL (<100); Potassium 4.5 mmol/L (3.3-5.1); Sodium 140 mmol/L (135-145); Total Protein 6.3 g/dL (6.5-8.0); Triglycerides 82 mg/dL (<150)
[2024-07-29 11:48] LABS: SLIDE REVIEW VERIFIED
--- OUTSIDE RECORDS SUMMARY | 2024-07-29 12:39 | XMS_ITS ---
Author Organization Freddy Mcdonald MD Address [address] [place], [place] [phone] Care Team Providers Care Advertising Solicitor Name Role Phone Freddy Mcdonald Primary Care Provider Results Component Value Reference Range Notes Complete Blood Count Auto Di ff (Not yet reviewed by provider) Interpretation: Performing Lab:[facility], [address] [place] [phone] Notes/Report: White Blood Count 13.0 4.8-10.8 X10*3/uL [...] 0.0-0.012 X10*3/uL CORRECTED REPORT CORRECTED REPORT Comprehensive [place]. Panel Fa st (Not yet reviewed by provider) Interpretation: Performing Lab:[facility], [address] [place] [phone] Notes/Report: Sodium 140 135-145 mmol/L Potassium 4.5 [...] Alkaline Phosphatase 63 39-117 U/L Lipid Panel (Not yet reviewe d by provider) Interpretation: Performing Lab:[facility], [address] [place] [phone] Notes/Report: Triglycerides 82 <150 mg/dL Desirable Triglyceride: [...] liver disease. UA ClnCatch+Micro w/rflx Cul t (Not yet reviewed by provider) Interpretation: Performing Lab:[facility], [address] [place] [phone] Notes/Report: Urine, Clean Catch Color Urine Yellow Appearance Urine Clear PH 5.5 5.0-9.0 Glucose Urine UA Negative Negative mg/dL Urine Blood Negative Negative Specific [place] - Urine >= 1.030 1.005-1.025 Urine Protein [...] Date Provider Diagnosis Freddy Mcdonald MD [address] [place], [place] [phone] 07/29/2024 Freddy Mcdonald Blood tests for routine general physical examination Z00.00 Assessments Encounter Date Diagnosis (ICD Code) Assessment Notes Treatment Notes Treatment Clinical Notes Section Notes 07/29/2024 Blood tests for routine general physical examination (ICD-10 - Z00.00) Plan Of Treatment Pending Test Test Name Order Date Complete Blood Count Auto Diff 5 Comprehensive [place]. Panel Fast 5 Lipid Panel 07/29/2024 UA ClnCatch+Micro w/rflx Cult 07/29/2024 Next Appt Details Provider Name:Freddy Eddy ier, 08/02/2024 02:30:00 PM, [address], [address], [place], [phone], Progress Notes * MANDY KRUGER SDOB: [birth year] (29 yo M)Acc No.[id number]:07/29/2024 Progress Note Patient:?MANDY KRUGER Provider:?Freddy Mcdonald MD :1995???Age:29 Y???Sex:Male Chris e:07/29/2024 Address:[address] [place] [address] [id number] Subjective: * Chief Complaints: * ???1. Yearly fasting labs. * Medical History:? Objective: * Vitals:? Assessment: * Assessment: 1.?Blood tests for routine g eneral physical examination - Z00.00 (Primary)??? Plan: * Treatment: * Procedure Codes:?43244 VENIP UNCT, ROUTINE* * * The named appointment provid er may or may not be the originator of this progress note, and it is not deemed complete until electronically signed by the appointment provider. Sign off status: Pending * Provider:?Freddy Mcdonald MD Date:?0 07/29/2024 Generated for Duane cowan/Hanh/eTtaesmitting on:?07/29/2024 12:38 PM EDT
--- OUTSIDE RECORDS SUMMARY | 2024-07-29 12:39 | XMS_ITS | Patient Health Record ---
Author Organization Freddy Mcdonald MD Address [address] [place], [place] [phone] Care Team Providers Care Truck Driver Flatbed Name Role Phone Freddy Mcdonald Primary Care Provider Allergies No Known Allergies Results Component Value Reference Range Notes SLIDE REVIEW (Not yet review ed by provider) Interpretation: Performing Lab:[address] [phone] Notes/Report: SLIDE REVIEW VERIFIED Complete Blood Count Auto Di ff (Not yet reviewed by provider) Interpretation: Performing Lab:[address] [address] Notes/Report: White Blood Count 13.0 4.8-10.8 X10*3/uL [...] 0.0-0.012 X10*3/uL CORRECTED REPORT CORRECTED REPORT Comprehensive [place]. Panel Fa st (Not yet reviewed by provider) Interpretation: Performing Lab:[address] [address] Notes/Report: Sodium 140 135-145 mmol/L Potassium 4.5 [...] 63 39-117 U/L Lipid Panel (Not yet review ed by provider) Interpretation: Performing Lab:[address] [place] [address] Notes/Report: Triglycerides 82 <150 mg/dL Desirable Triglyceride: [...] (Not yet reviewed by provider) Interpretation: Performing Lab:[facility], [address] [place] [phone] Notes/Report: Urine, Clean Catch Color Urine Yellow Appearance Urine Clear PH 5.5 5.0-9.0 Glucose Urine UA Negative Negative mg/dL Urine Blood Negative Negative Specific [place] - Urine >= 1.030 1.005-1.025 Urine Protein Negative Neg-Trace mg/dL Urine Ketones Negative Negative mg/dL Nitrite Urine Negative Negative Leukocyte Esterase Urine Negative Negative RBC Urine 0-2 0-2 /HPF WBC Urine 0-5 0-5 /HPF Squamous Epithelial Cell Urine 0-2 0-2 /HPF Bacteria Urine None Seen None Seen Hyaline Casts Urine 0-2 0-2 /LPF Reason For Referral Reason paronychia of great [...] Referral Priority Routine Referral Appointment Date 2024 Medications Medication SIG (Take, Route, Frequency, Duration) Notes Start Date End Date Status Cephalexin 500 MG 1 capsule Orally 3 times a day for 10 days 06/22/2024 Active Ventolin HFA 108 (90 Base) MCG/ACT 1 puff as needed Inhalation every 4 hrs for 30 days Active Triamcinolone Acetonide 0.5 % apply Externally Once a day for 30 days 07/19/2022 Active Flovent HFA 220 MCG/ACT INHALE 1 PUFF BY MOUTH TWO TIMES A DAY (RINSE MOUTH AFTER USE) Inhalation Twice a day Active Albuterol Sulfate 0.63 MG/3ML 3 ml [...] day for 14 days 07/19/2022 Not-Takin g Cromolyn Sodium 5.2 MG/ACT 1 spray in ea ch nostril Nasally before cat exposure 08/31/2020 Active Singulair 10 MG 1 tablet Orally Once a day 11/14/2017 Active Immunizations Vaccine Route Administration Date Status Comme nts Flu Vaccine IM Intramuscular 02/03/2015 Administered Fluarix Quadrivalent IM Intramuscular 03/03/2017 Administe red TDaP IM Intramuscular 03/27/2019 Administered pt was given the vaccine at the [facility] in [place]. Hepatitis B IM Intramuscular 03/27/2019 Administered pt wa s given the vaccine at [facility] in [place]. Tetanus Unknown 03/27/2019 Administered Fluarix Quadrivalent Unknown 01/14/2020 Administered Bi g Y Covid Vaccine Unknown 07/05/2020 Administered Moderna Covid Vaccine Unknown 08/02/2020 Administered Moderna Social History Tobacco Use: Social History Observation Description Date Details (start date - stop date) Never Smoker NA - NA Tobacco Use/Smoking Question Answer Notes Patient is a nonsmoker Additional Findings: Tobacco Non-User Cu rrent non-smoker, currently using no form of tobacco Alcohol Screen Question Answer Notes Did you have a drink contain ing alcohol in the past year? Yes How often did you have a dri nk containing alcohol in the past year? 2 to 3 times a week (3 points) How many drinks did you have on a typical day when you were drinking in the past year? 1 or 2 drinks (0 point) How often did you have 6 or more drinks on one occasion in the past year? 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) Active confirmed Problem 869894127 Cat allergies (J30.81) Active confirmed Vital Signs Blood pressure diastolic 70 mm Hg 06/22/2024 Height 69.5 in 06/22/2024 Blood pressure systolic 112 mm Hg 06/22/2024 Weight 181 lbs 06/22/2024 BMI 26.34 kg/m2 06/22/2024 Encounters Encounter Location Date Provider Diagnosis Freddy Mcdonald MD [address] [place] [phone] 08/01/2023 Freddy Mcdonald Mild intermittent asthma without complication J45.20 ; Annual physical exam Z00.00 and Depression screening Z13.31 Freddy Mcdonald MD [address] [place] [id number] 06/22/2024 Freddy Mcdonald Paronychia of great toe L03.039 Freddy Mcdonald MD [address] [place] [phone] 07/29/2024 Freddy Mcdonald Blood tests for routine general physical examination Z00.00 Assessments Encounter Date Diagnosis (ICD Code) Assessment Notes Treatment Notes Treatment Clinical Notes Section Notes 08/01/2023 Mild intermittent asthma without complication (ICD-10 - J45.20) stable, will continue current regiment 08/01/2023 Annual physical exam (ICD-10 - Z00.00) labs reviewed and discussed with patient 06/22/2024 Paronychia of great toe (ICD-10 - L03.039) patient verbalized understanding of medicatin and irections for use, referral to surgeon 07/29/2024 Blood tests for routine general physical examination (ICD-10 - Z00.00) 08/01/2023 Depression screening (ICD-10 - Z13.31) negative screen Plan Of Treatment Pending Test Test Name Order Date Complete Blood Count Auto Diff 5 Comprehensive [place]. Panel Fast 5 Lipid Panel 07/29/2024 SLIDE REVIEW 07/29/2024 UA ClnCatch+Micro w/rflx Cult 07/29/2024 Next Appt Details Provider Name:Freddy Eddy ier, 08/02/2024 02:30:00 PM, [address] [place] [address], [address], [place], [place], [phone], Insurance Providers Payer Name Payer Address Payer Phone Subscriber Number Group Number Insured Name Patient Relationship to Insured Coverage Start Date Coverage End Date [facility] [address] [address] [place] [address] [id number] MANDY KRUGER Self - patient is the insured [facility] [address] [place] [address] [id number] MANDY KRUGER Self - patient is the insured
--- OUTSIDE RECORDS SUMMARY | 2024-07-29 12:39 | XMS_ITS ---
Author Organization Freddy Mcdonald MD Address [address] [place], [place] [phone] Care Team Providers Care Wool Fleece Sorter Name Role Phone Freddy Mcdonald Primary Care Provider Allergies No Known Allergies Reason For Referral [...] Location Date Provider Diagnosis Freddy Mcdonald MD [address] [place] [address] [place] [phone] 06/22/2024 Freddy Mcdonald Paronychia of great toe [...] Jesus Next Appt Details Provider Name:Freddy hutton, 08/02/2024 02:30:00 PM, [address], [address], [place], [phone], Progress Notes * MANDY KRUGER SDOB: [birth year] (28 yo M)Acc No.[id number]:06/22/2024 Patient:?MANDY KRUGER Provider:?Freddy Mcdonald MD :1995???Age:28 Y???Sex:Male Chris e:06/22/2024 Address:[address] [place] [address] [id number] Subjective: * Chief Complaints: * ???Right big toe infected x 8 days * HPI: ???Symptom(s):?patient is a 28 yo male, complaining about his right great toe infection for 8 days, got something stabbed beside his toenail. gets pus at times is getting worse. * ROS:?General/Constitutional:?Denies?Chills.?Denies?Fatigue.?Denies?Fever.?Denies?Headache.?ENT:?Denies?Sore throat.?Respiratory:?Denies?Cough.?Denies?Shortness of breath at rest.?Denies?Shortness of breath with exertion.?Gastrointestinal:?Denies?Diarrhea.?Denies?Nausea.? * Medical History:? * Surgical History:? * Hospitalization/Major Diagno stic Procedure:? * Medications:?TakingSingulair 10 MG Tablet 1 tablet Orally Once [...] reviewed and reconciled with the patient * Allergies:?N.K.D.A.yes[Aller gies Verified] Objective: * Vitals:?Ht: 69.5, Wt: 181, B [place]:26.34, BP:112/70, Wt-k.1. * Examination: ???General Examination: ?GENERAL APPEARANCE:?well developed, well nourished.?SKIN:?abnormal witha paronychia on the left great toe.? Assessment: * Assessment: 1.?Paronychia of great toe - L03.039 (Primary)??? Plan: * Treatment: * Procedure Codes:? * * Sign off status: Completed true * Provider:?Freddy Mcdonald MD Date:?0 06/22/2024 Generated for Duane cowan/Hanh/Ceferinoitting on:?07/29/2024 12:38 PM EDT History and Physical Notes * HPI [...]
--- OUTSIDE RECORDS SUMMARY | 2024-07-29 12:39 | XMS_ITS ---
Author Organization Freddy Mcdonald MD Address [address] [place] [phone] Care Team Providers Care Hose Builder Name Role Phone Freddy Mcdonald Primary Care Provider Allergies No Known Allergies REASON FOR VISIT 6 month Encounters Encounter Location Date Provider Diagnosis Freddy Mcdonald MD [address] [place] [address] [place] [phone] 01/30/2024 Freddy Mcdonald Plan Of Treatment Next Appt Details Provider Name:Freddy Eddy ier, 08/02/2024 02:30:00 PM, [address] [place] [address], [address], [phone], Progress Notes * MANDY KRUGER SDOB: [birth year] (29 yo M)Acc No.[id number]:01/30/2024 Progress Notes Patient:?MANDY KRUGER Provider:?Freddy Mcdonald MD :1995???Age:28 Y???Sex:Male Chris e:01/30/2024 Address:[address], [place] Subjective: * Chief Complaints: * ???1. 6 month. * ROS:?General/Constitutional:?Denies?Chills.?Denies?Fatigue.?Denies?Fever.?Denies?Headache.?ENT:?Denies?Sore throat.?Respiratory:?Denies?Cough.?Denies?Shortness of breath at rest.?Denies?Shortness of breath with exertion.?Gastrointestinal:?Denies?Diarrhea.?Denies?Nausea.? * Medical History:?Medical His tory Verified. * Allergies:?N.K.D.A. Objective: * Vitals:? Assessment: Plan: * Treatment: * * The named appointment provid er may or may not be the originator of this progress note, and it is not deemed complete until electronically signed by the appointment provider. Sign off status: Pending * Provider:?Freddy Mcdonald MD Date:?1 Generated for Duane cowan/Hanh/eTtaesmitting on:?07/29/2024 12:38 PM EDT
== END 2024-07-29 10:48 | disposition home or self-care (01) ==
LOC: HO.LNP 10:47
PROVIDERS: Visit Provider Internal Medicine
DX: Z00.00 Encounter for general adult medical examination without abnormal findings (principal); Z13.6 Encounter for screening for cardiovascular disorders
CPT/HCPCS: 80053; 80061; 81001; 85025

== ENCOUNTER 2024-08-06 10:12 | Outpatient (REF) | payer OTHER, SELFPAY ==
[2024-08-06 10:14] LABS: MANUAL DIFF FLAG NO
[2024-08-06 10:20] LABS: Basophils Absolute Auto 0.1 X10*3/uL (0.0-0.2); Basophils Percent Auto 1.2 % (0-2); Eosinophils Absolute Auto 0.3 X10*3/uL (0.0-0.4); Eosinophils Percent Auto 4.3 % (0-4); Hematocrit 41.9 % (42.0-52.0); Hemoglobin 14.2 g/dl (14.0-18.0); Imm Gran Abs Auto 0.02 X10*3/uL (0.00-0.03); Imm Gran Pct Auto 0.3 % (0.0-0.4); Lymphocytes Absolute Auto 2.2 X10*3/uL (1.2-4.9); Lymphocytes Percent Auto 32.2 % (20-40); Mean Corpuscular HGB Conc 33.9 g/dl (31.0-36.0); Mean Corpuscular Hemoglobin 29.2 pg (27.0-33.0); Mean Corpuscular Volume 86.2 fL (80.0-98.0); Mean Platelet Volume 11.6 fL (9.4-12.4); Monocytes Absolute Auto 0.8 X10*3/uL (0.1-1.2); Monocytes Percent Auto 11.2 % (2-11); Neutrophils Absolute Auto 3.4 x10*3/uL (2.0-8.3); Neutrophils Percent Auto 50.8 % (45-73); Platelet Count 319 X10*3/uL (160-400); Red Blood Count 4.86 X10*6/uL (4.60-5.80); Red Cell Distribution Width 12.4 % (11.0-16.0); White Blood Count 6.7 X10*3/uL (4.8-10.8)
--- OUTSIDE RECORDS SUMMARY | 2024-08-06 11:10 | XMS_ITS ---
Author Organization Freddy Mcdonald MD Address [address] [place], [place] [phone] Care Team Providers Care Custom Grinder Name Role Phone Freddy Mcdonald Primary Care Provider Results Component Value Reference Range Notes Complete Blood Count Auto Di ff (Not yet reviewed by provider) Interpretation: Performing Lab:[facility], [address] [place] [phone] Notes/Report: White Blood Count 6.7 4.8-10.8 X10*3/uL [...] Location Date Provider Diagnosis Freddy Mcdonald MD [address] [place] [address] [place] [phone] 08/06/2024 Freddy Mcdonald Leukocytosis D72.829 Assessments Encounter Date Diagnosis (ICD Code) Assessment Notes Treatment Notes Treatment Clinical Notes Section Notes 08/06/2024 Leukocytosis (ICD-10 - D72.829) Plan Of Treatment Pending Test Test Name Order Date Complete Blood Count Auto Diff Next Appt Details Provider Name:Freddy Eddy ier, 08/27/2024 09:30:00 AM, [address] [place] [address], Suite [facility], [place], [place], [phone], Progress Notes * MANDY KRUGER SDOB: [birth year] (29 yo M)Acc No.[id number]:08/06/2024 Progress Note Patient:?MANDY KRUGER S Provider:?Freddy Mcdonald MD :1995???Age:29 Y???Sex:Male Chris e:08/06/2024 Address:[address] [place] [address] [place] Te[place]eda [id number] Subjective: * Chief Complaints: * ???1. 1 week repeat CBC. * Medical History:? Objective: * Vitals:? Assessment: * Assessment: 1.?Leukocytosis - D72.829??? Plan: * Treatment: * Procedure Codes:?22965 VENIP UNCT, ROUTINE* * * The named appointment provid er may or may not be the originator of this progress note, and it is not deemed complete until electronically signed by the appointment provider. Sign off status: Pending * Provider:?Freddy Mcdonald MD Date:?0 08/06/2024 Generated for Duane cowan/Hanh/Christophesmitting on:?08/06/2024 11:10 AM EDT
--- OUTSIDE RECORDS SUMMARY | 2024-08-06 11:10 | XMS_ITS ---
Author Organization Freddy Mcdonald MD Address [address] [place], [place] [phone] Care Team Providers Care Book Store Associate Name Role Phone Freddy Mcdonald Primary Care Provider Results Component Value Reference Range Notes Complete Blood Count Auto Di ff Reviewed date:07/30/2024 08:13:05 AM Interpretation: Performing Lab:[facility], [address] [place] [phone] Notes/Report: White Blood Count 13.0 4.8-10.8 X10*3/uL [...] 0.0-0.012 X10*3/uL CORRECTED REPORT CORRECTED REPORT Comprehensive [place]. Panel Fa st Reviewed date:07/29/2024 04:49:18 PM Interpretation: Performing Lab:[address] [phone] Notes/Report: Sodium 140 135-145 mmol/L Potassium 4.5 [...] Panel Reviewed date:07/29/2024 04:49:29 PM Interpretation: Performing Lab:[facility], [address] [place] [phone] Notes/Report: Triglycerides 82 <150 mg/dL Desirable Triglyceride: [...] t Reviewed date:07/29/2024 04:53:23 PM Interpretation: Performing Lab:[facility], [address] [place] [phone] Notes/Report: Urine, Clean Catch Color Urine Yellow Appearance Urine Clear PH 5.5 5.0-9.0 Glucose Urine UA Negative Negative mg/dL Urine Blood Negative Negative Specific [place] - Urine >= 1.030 1.005-1.025 Urine Protein [...] Date Provider Diagnosis Freddy Mcdonald MD [address] [place], [place] [phone] 07/29/2024 Freddy Mcdonald Blood tests for routine general physical examination Z00.00 Assessments Encounter Date Diagnosis (ICD Code) Assessment Notes Treatment Notes Treatment Clinical Notes Section Notes 07/29/2024 Blood tests for routine general physical examination (ICD-10 - Z00.00) Plan Of Treatment Next Appt Details Provider Name:Freddy hutton, 08/27/2024 09:30:00 AM, [address], [address], [place], [place], [phone], Progress Notes * MANDY KRUGER SDOB: [birth year] (29 yo M)Acc No.[id number]:07/29/2024 Progress Note Patient:?MANDY KRUGER Provider:?Freddy Mcdonald MD :1995???Age:29 Y???Sex:Male Chris e:07/29/2024 Address:[address] [place] [address] [id number] Subjective: * Chief Complaints: * ???1. Yearly fasting labs. * Medical History:? Objective: * Vitals:? Assessment: * Assessment: 1.?Blood tests for routine g eneral physical examination - Z00.00 (Primary)??? Plan: * Treatment: * Procedure Codes:?75121 VENIP UNCT, ROUTINE* * * The named appointment provid er may or may not be the originator of this progress note, and it is not deemed complete until electronically signed by the appointment provider. Sign off status: Pending * Provider:?Freddy Mcdonald MD Date:?0 07/29/2024 Generated for Duane cowan/Hanh/Ceferinoitting on:?08/06/2024 11:10 AM EDT
--- OUTSIDE RECORDS SUMMARY | 2024-08-06 11:10 | XMS_ITS ---
Author Organization Freddy Mcdonald MD Address [address] [place], [place] [phone] Care Team Providers Care Tax Collection Coordinator Name Role Phone Freddy Mcdonald Primary Care Provider [phone] Allergies No Known Allergies Reason For [...] Location Date Provider Diagnosis Freddy Mcdonald MD [address] [place] [address] [place] [phone] 06/22/2024 Freddy Mcdonald Paronychia of great toe [...] Jesus Next Appt Details Provider Name:Freddy hutton, 08/27/2024 09:30:00 AM, [address] [place] [address] Drive, [address], [place], [phone], Progress Notes * MANDY KRUGER SDOB: [birth year] (28 yo M)Acc No.[id number]:06/22/2024 Patient:?MANDY KRUGER Provider:?Freddy Mcdonald MD :1995???Age:28 Y???Sex:Male Chris e:06/22/2024 Address:[address] [place] [address] [id number] Subjective: * Chief Complaints: * ???Right big [...] Objective: * Vitals:?Ht: 69.5, Wt: 181, B DC:26.34, BP:112/70, Wt-k.1. * Examination: ???General Examination: ?GENERAL APPEARANCE:?well developed, well nourished.?SKIN:?abnormal witha paronychia on the left great toe.? Assessment: * Assessment: 1.?Paronychia of great toe - L03.039 (Primary)??? Plan: * Treatment: * Procedure Codes:? * * Sign off status: Completed true * Provider:?Freddy Mcdonald MD Date:?0 06/22/2024 Generated for Duane cowan/Hanh/Ceferinoitting on:?08/06/2024 11:10 AM EDT History and Physical Notes * [...]
--- OUTSIDE RECORDS SUMMARY | 2024-08-06 11:11 | XMS_ITS | Patient Health Record ---
Author Organization Freddy Mcdonald MD Address [address] [place], [place] [id number] Care Team Providers Care Fiscal Analyst Name Role Phone Freddy Mcdonald Primary Care Provider Allergies No Known Allergies Results Component Value Reference Range Notes SLIDE REVIEW Reviewed date:07/29/2024 12:45:25 PM Interpretation: Performing Lab:[address] [phone] Notes/Report: SLIDE REVIEW VERIFIED Complete Blood Count Auto Di ff Reviewed date:07/30/2024 08:13:05 AM Interpretation: Performing Lab:[address] [phone] Notes/Report: White Blood Count 13.0 4.8-10.8 X10*3/uL [...] 0.0-0.012 X10*3/uL CORRECTED REPORT CORRECTED REPORT Comprehensive [place]. Panel Fa st Reviewed date:07/29/2024 04:49:18 PM Interpretation: Performing Lab:[facility], [address] [place] [phone] Notes/Report: Sodium 140 135-145 mmol/L Potassium 4.5 [...] Panel Reviewed date:07/29/2024 04:49:29 PM Interpretation: Performing Lab:[facility], [address] [place] [phone] Notes/Report: Triglycerides 82 <150 mg/dL Desirable Triglyceride: [...] t Reviewed date:07/29/2024 04:53:23 PM Interpretation: Performing Lab:[facility], [address] [place] [phone] Notes/Report: Urine, Clean Catch Color Urine Yellow Appearance Urine Clear PH 5.5 5.0-9.0 Glucose Urine UA Negative Negative mg/dL Urine Blood Negative Negative Specific [place] - Urine >= 1.030 1.005-1.025 Urine Protein Negative Neg-Trace mg/dL Urine Ketones Negative Negative mg/dL Nitrite Urine Negative Negative Leukocyte Esterase Urine Negative Negative RBC Urine 0-2 0-2 /HPF WBC Urine 0-5 0-5 /HPF Squamous Epithelial Cell Urine 0-2 0-2 /HPF Bacteria Urine None Seen None Seen Hyaline Casts Urine 0-2 0-2 /LPF Complete Blood Count Auto Di ff (Not yet reviewed by provider) Interpretation: Performing Lab:[facility], [address] [place] [phone] Notes/Report: White Blood Count 6.7 4.8-10.8 X10*3/uL [...] X10*3/uL NRBC Abs Auto 0.000 0.0-0.012 X10*3/uL Reason For Referral Reason paronychia of great [...] Once a day for 14 days 07/19/2022 Not-Jefferyin g Cromolyn Sodium 5.2 MG/ACT 1 spray in ea ch nostril Nasally before cat exposure 08/31/2020 Active Singulair 10 MG 1 tablet Orally Once a day 11/14/2017 Active Immunizations Vaccine Route Administration Date Status Comme nts Flu Vaccine IM Intramuscular 02/03/2015 Administered Fluarix Quadrivalent IM Intramuscular 03/03/2017 Administe red TDaP IM Intramuscular 03/27/2019 Administered pt was given the vaccine at the [facility] in [place]. Hepatitis B IM Intramuscular 03/27/2019 Administered pt wa s given the vaccine at [facility] in [place]. 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) Active confirmed Problem 010906788 Cat allergies (J30.81) Active confirmed Vital Signs Blood pressure diastolic 70 mm Hg 06/22/2024 Height 69.5 in 06/22/2024 Blood pressure systolic 112 mm Hg 06/22/2024 Weight 181 lbs 06/22/2024 BMI 26.34 kg/m2 06/22/2024 Encounters Encounter Location Date Provider Diagnosis Freddy Mcdonald MD [address] [place] [address] Drive [address] [place] [id number] 06/22/2024 Freddy Mcdonald Paronychia of great toe L03.039 Freddy Mcdonald MD [address] [place] [address] [id number] 07/29/2024 Freddy Mcdonald Blood tests for routine general physical examination Z00.00 Freddy Mcdonald MD [address] [place] [id number] 08/06/2024 Freddy Mcdonald Leukocytosis D72.829 Assessments Encounter Date Diagnosis (ICD Code) Assessment Notes Treatment Notes Treatment Clinical Notes Section Notes 06/22/2024 Paronychia of great toe (ICD-10 - L03.039) patient verbalized understanding of medicatin and irections for use, referral to surgeon 07/29/2024 Blood tests for routine general physical examination (ICD-10 - Z00.00) 08/06/2024 Leukocytosis (ICD-10 - D72.829) Plan Of Treatment Pending Test Test Name Order Date Complete Blood Count Auto Diff 05/02/202 5 Next Appt Details Provider Name:Freddy Meyers Surjit deleonr, 08/27/2024 09:30:00 AM, [address], [address], [place], [place], [phone], Insurance Providers Payer Name Payer Address Payer Phone Subscriber Number Group Number Insured Name Patient Relationship to Insured Coverage Start Date Coverage End Date [facility] [address] [address] [place] [address] [id number] MANDY KRUGER Self - patient is the insured [address] [address] [id number] MANDY KRUGER Self - patient is the insured
== END 2024-08-06 10:13 | disposition home or self-care (01) ==
LOC: HO.LNP 10:12
PROVIDERS: Visit Provider Internal Medicine
DX: D72.829 Elevated white blood cell count, unspecified (principal)
CPT/HCPCS: 85025

== ENCOUNTER 2025-01-10 09:10 | Outpatient (AMB) | payer OTHER, SELFPAY ==
--- OUTSIDE RECORDS SUMMARY | 2024-01-30 03:30 | XMS_ITS ---
Author Organization Freddy Mcdonald MD Address [address] [place] [phone] Care Team Providers Care Clay Stain Mixer Name Role Phone Freddy Mcdonald Primary Care Provider Allergies No Known Allergies REASON FOR VISIT 6 month Encounters Encounter Location Date Provider Diagnosis Freddy Mcdonald MD [address] [place] [address] [address] [place] [id number] 01/30/2024 Freddy Mcdonald Plan Of Treatment Next Appt Details Provider Name:Freddy Eddy ier, 08/26/2025 07:15:00 AM, [address] [place] [address], [phone], Provider Name:Freddy Eddy ier, 09/02/2025 09:30:00 AM, [address] [place] [address], [address], [phone], Progress Notes * MANDY KRUGER SDOB: [birth year] (29 yo M)Acc No.[id number]:01/30/2024 Progress Notes Patient: MANDY LICEA Provider: Adriano Mcdonald MD :1995 A ge:28 Y S ex:Male Date:01/30/2024 Address:[address] [place] [address] Dr Tatiana, [id number] Subjective: * Chief Complaints: * 1 . 6 month. * ROS: G eneral/Constitutional: Denies C hills. D enies F atigue. D enies F ever. D enies H eadache. E NT: Denies S ore throat. R espiratory: Denies C ough. D enies S hortness of breath at rest. D enies S hortness of breath with exertion. G astrointestinal: Denies D iarrhea. D enies N ausea. * Medical History: M edical History Verified. * Allergies: N .K.D.A. Objective: * Vitals: Assessment: Plan: * Treatment: * * The named appointment provid er may or may not be the originator of this progress note, and it is not deemed complete until electronically signed by the appointment provider. Sign off status: Pending * Provider: Adriano Mcdonald MD Date: 1 Generated for Duane cowan/Hanh/Ceferinoitting on: 10:18 AM EDT
--- OUTSIDE RECORDS SUMMARY | 2024-06-22 05:15 | XMS_ITS ---
Author Organization Freddy Mcdonald MD Address [address] [place], [place] [id number] Care Team Providers Care Hard Metals Hand Engraver Name Role Phone Freddy Mcdonald Primary Care Provider [phone] Allergies No Known Allergies Reason For Referral Reason paronychia of great toe Diagnosis 1 Paronychia of great toe (L03.039) Referral Organization Freddy Mcdonald MD Referring Provider First Name Freddy Referring Provider Last Name Tamara Referring Provider Speciality Internal M edicine Referred Provider Casey Lee Referred Provider Specialty Surgery General Notes Dorothea Quinones 0 06/22/2024 09:27:45 AM >referral info faxed and patient is aware of Tushar trammell Patti A 07/02/2024 11:06:51 AM >OFFICE NOTE RECD Referral Priority Routine Referral Appointment Date 2024 REASON FOR VISIT right big toe infected x 8 days Medications Medication SIG (Take, Route, Frequency, Duration) Notes Start Date End Date Status Ventolin HFA 108 (90 Base) MCG/ACT 1 puff as needed Inhalation every 4 hrs for 30 days Active Albuterol Sulfate 0.63 MG/3ML 3 ml as needed Inhalation every 6 hrs for 14 days 01/10/2017 Not-Taking Albuterol Sulfate (2.5 MG/3ML) 0.083% 3 ml as needed Inhalation every 6 hrs for 30 days 08/22/2020 Not-Taking Albuterol Sulfate HFA 108 (90 Base) MCG/ACT 1 puff as needed Inhalation every 4 hrs 08/31/2020 Not-Takin g Hydrocortisone Acetate 1 % 1 application to face Once a day for 14 days 07/19/2022 Not-Takin g Cephalexin 500 MG 1 capsule Orally 3 times a day for 10 days 06/22/2024 Active Triamcinolone Acetonide 0.5 % apply Externally Once a day for 30 days 07/19/2022 Active Flovent HFA 220 MCG/ACT INHALE 1 PUFF BY MOUTH TWO TIMES A DAY (RINSE MOUTH AFTER USE) Inhalation Twice a day Active Cromolyn Sodium 5.2 MG/ACT 1 spray in ea ch nostril Nasally before cat exposure 08/31/2020 Active Singulair 10 MG 1 tablet Orally Once a day 11/14/2017 Active Vital Signs Blood pressure systolic 112 mm Hg 06/23/19 25 Blood pressure diastolic 70 mm Hg 025 Height 69.5 in 06/22/2024 Weight 181 lbs 06/22/2024 BMI 26.34 kg/m2 06/22/2024 Encounters Encounter Location Date Provider Diagnosis Freddy Mcdonald MD [address] [place] [address] [place] [phone] 06/22/2024 Freddy Mcdonald Paronychia of great toe L03.039 Assessments Encounter Date Diagnosis (ICD Code) Assessment Notes Treatment Notes Treatment Clinical Notes Section Notes 06/22/2024 Paronychia of great toe (ICD-10 - L03.039) patient verbalized understanding of medicatin and irections for use, referral to surgeon Plan Of Treatment Medication Medication Name Sig Start Date Stop Date Notes Cephalexin 500 MG 1 capsule Orally 3 t imes a day for 10 days 06/22/2024 Treatment Notes Assessment Notes Paronychia of great toe patient verbaliz ed understanding of medicatin and irections for use, referral to surgeon Referrals Referral Date Details 06/22/2024 06/22/2024, paronych ia of great toe, Casey Jesus Next Appt Details Provider Name:Freddy hutton, 08/26/2025 07:15:00 AM, [address], [address], [place], [place], [phone], Provider Name:Freddy Eddy ier, 09/02/2025 09:30:00 AM, [address], [address], [place], [place], [phone], Progress Notes * MANDY KRUGER SDOB: [birth year] (28 yo M)Acc No.[id number]:06/22/2024 Patient: MANDY LICEA Provider: Adriano Mcdonald MD :1995 A ge:28 Y S ex:Male Date:06/22/2024 Address:[address] [place] [address] , [id number] Subjective: * Chief Complaints: * R ight big toe infected x 8 days * HPI: S ymptom(s): patient is a 28 yo male, complaining about his right great toe infection for 8 days, got something stabbed beside his toenail. gets pus at times is getting worse. * ROS: G eneral/Constitutional: Denies C hills. D enies F atigue. D enies F ever. D enies H eadache. E NT: Denies S ore throat. R espiratory: Denies C ough. D enies S hortness of breath at rest. D enies S hortness of breath with exertion. G astrointestinal: Denies D iarrhea. D enies N ausea. * Medical History: * Surgical History: * Hospitalization/Major Diagno stic Procedure: * Medications: T akingSingulair 10 MG Tablet 1 tablet Orally Once a day Cromolyn Sodium 5.2 MG/ACT Aerosol Solution 1 spray in each nostril Nasally before cat exposure Flovent HFA 220 MCG/ACT Aerosol INHALE 1 PUFF BY MOUTH TWO TIMES A DAY (RINSE MOUTH AFTER USE) Inhalation Twice a day Triamcinolone Acetonide 0.5 % Cream apply Externally Once a day Ventolin HFA 108 (90 Base) MCG/ACT Aerosol Solution 1 puff as needed Inhalation every 4 hrs Taking Singulair 10 MG Tablet 1 tablet Orally Once a day Taking Cromolyn Sodium 5.2 MG/ACT Aerosol Solution 1 spray in each nostril Nasally before cat exposure Taking Flovent HFA 220 MCG/ACT Aerosol INHALE 1 PUFF BY MOUTH TWO TIMES A DAY (RINSE MOUTH AFTER USE) Inhalation Twice a day Taking Triamcinolone Acetonide 0.5 % Cream apply Externally Once a day Taking Ventolin HFA 108 (90 Base) MCG/ACT Aerosol Solution 1 puff as needed Inhalation every 4 hrs Not-Taking/PRNHydrocortisone Acetate 1 % Cream 1 application to face Once a day Albuterol Sulfate HFA 108 (90 Base) MCG/ACT Aerosol Solution 1 puff as needed Inhalation every 4 hrs Albuterol Sulfate (2.5 MG/3ML) 0.083% Nebulization Solution 3 ml as needed Inhalation every 6 hrs Albuterol Sulfate 0.63 MG/3ML Nebulization Solution 3 ml as needed Inhalation every 6 hrs Medication List reviewed and reconciled with the patientNot-Taking/PRN Hydrocortisone Acetate 1 % Cream 1 application to face Once a day Not-Taking/PRN Albuterol Sulfate HFA 108 (90 Base) MCG/ACT Aerosol Solution 1 puff as needed Inhalation every 4 hrs Not-Taking/PRN Albuterol Sulfate (2.5 MG/3ML) 0.083% Nebulization Solution 3 ml as needed Inhalation every 6 hrs Not-Taking/PRN Albuterol Sulfate 0.63 MG/3ML Nebulization Solution 3 ml as needed Inhalation every 6 hrs Medication List reviewed and reconciled with the patient * Allergies: N .K.D.A.yes[Allergies Verified] Objective: * Vitals: H t: 69.5, Wt: 181, BMI:26.34, BP:112/70, Wt-k.1. * Examination: G eneral Examination: GENERAL APPEARANCE: w ell developed, well nourished. SKIN: a bnormal witha paronychia on the left great toe.? Assessment: * Assessment: 1. P aronychia of great toe - L03.039 (Primary) Plan: * Treatment: * Procedure Codes: * * Sign off status: Completed true * Provider: Adriano Mcdonald MD Date: 0 06/22/2024 Generated for Duane cowan/Hanh/eTransmitting on: 1 10:18 AM EDT History and Physical Notes * HPI (History of Present Illness) Category Sub-Category Detail Notes Category Not es Symptom(s) patient is a 28 yo male, complaining about his right great toe infection for 8 days, got something stabbed beside his toenail. gets pus at times is getting worse. Examination Category Sub-Category Detail Notes Category Not es General Examination GENERAL APPEARANCE: well developed , well nourished SKIN: abnormal witha paron ychia on the left great toe Consultation Request Notes Referral Date Referring Provider Referred Provider Not es 06/22/2024 Freddy Mcdonald Pasquale paronych ia of great toe
--- OUTSIDE RECORDS SUMMARY | 2024-07-29 04:00 | XMS_ITS ---
Author Organization Freddy Mcdonald MD Address [address] [place], [place] [phone] Care Team Providers Care Corporate Trainer Name Role Phone Freddy Mcdonald Primary Care Provider [phone] Results Component Value Reference Range Notes Complete Blood Count Auto Di ff Reviewed date:07/30/2024 08:13:05 AM Interpretation: Performing Lab:[facility], [address] [place] [phone] Notes/Report: White Blood Count 13.0 4.8-10.8 X10*3/uL Red Blood Count 4.80 4.60-5.80 X10*6/uL Hemoglobin 14.0 14.0-18.0 g/dl Hematocrit 41.4 42.0-52.0 % Mean Corpuscular Volume 86.3 80.0-98.0 fL Mean Corpuscular Hemoglobin 29.2 27.0-33.0 pg Mean Corpuscular HGB Conc 33.8 31.0-36.0 g/dl Red Cell Distribution Width 12.7 11.0-16.0 % Platelet Count 257 160-400 X10*3/uL Mean Platelet Volume 12.1 9.4-12.4 fL Neutrophils Percent Auto 70.7 45-73 % Imm Gran Pct Auto 0.3 0.0-0.4 % Lymphocytes Percent Auto 14.5 20-40 % Monocytes Percent Auto 12.0 2-11 % Eosinophils Percent Auto 1.8 0-4 % Basophils Percent Auto 0.7 0-2 % NRBC Pct Auto 0.0 0.0-0.2 /100WBC Neutrophils Absolute Auto 9.2 2.0-8.3 x10*3/u L Imm Gran Abs Auto 0.04 0.00-0.03 X10*3/uL Lymphocytes Absolute Auto 1.9 1.2-4.9 X10*3/u L Monocytes Absolute Auto 1.6 0.1-1.2 X10*3/uL Eosinophils Absolute Auto 0.2 0.0-0.4 X10*3/u L Basophils Absolute Auto 0.1 0.0-0.2 X10*3/uL NRBC Abs Auto 0.000 0.0-0.012 X10*3/uL White Blood Count 13.0 4.8-10.8 X10*3/uL Red Blood Count 4.80 4.60-5.80 X10*6/uL Hemoglobin 14.0 14.0-18.0 g/dl Hematocrit 41.4 42.0-52.0 % Mean Corpuscular Volume 86.3 80.0-98.0 fL Mean Corpuscular Hemoglobin 29.2 27.0-33.0 pg Mean Corpuscular HGB Conc 33.8 31.0-36.0 g/dl Red Cell Distribution Width 12.7 11.0-16.0 % Platelet Count 257 160-400 X10*3/uL Mean Platelet Volume 12.1 9.4-12.4 fL Neutrophils Percent Auto 70.7 45-73 % Imm Gran Pct Auto 0.3 0.0-0.4 % Lymphocytes Percent Auto 14.5 20-40 % Monocytes Percent Auto 12.0 2-11 % Eosinophils Percent Auto 1.8 0-4 % Basophils Percent Auto 0.7 0-2 % NRBC Pct Auto 0.0 0.0-0.2 /100WBC Neutrophils Absolute Auto 9.2 2.0-8.3 x10*3/u L Imm Gran Abs Auto 0.04 0.00-0.03 X10*3/uL Lymphocytes Absolute Auto 1.9 1.2-4.9 X10*3/u L Monocytes Absolute Auto 1.6 0.1-1.2 X10*3/uL Eosinophils Absolute Auto 0.2 0.0-0.4 X10*3/u L Basophils Absolute Auto 0.1 0.0-0.2 X10*3/uL NRBC Abs Auto 0.000 0.0-0.012 X10*3/uL CORRECTED REPORT CORRECTED REPORT Comprehensive [place]. Panel Fa st Reviewed date:07/29/2024 04:49:18 PM Interpretation: Performing Lab:[address] [phone] Notes/Report: Sodium 140 135-145 mmol/L Potassium 4.5 3.3-5.1 mmol/L Chloride 107 96-108 mmol/L Carbon Dioxide 29 22-29 mmol/L Anion Gap 9 12-20 Blood Urea Nitrogen 14 9-16 mg/dL Creatinine 0.92 0.5-1.4 mg/dL Estimated Glomerular Filt Rate > 60 Chronic Kidney Disease: Estimated GFR < 60 mL/min/1.73m2 Severe Kidney Disease: Estimated GFR < 15 mL/min/1.73m2 Glucose Fasting 113 60-99 mg/dL A fasting glucose from 100-125 mg/dl is considered impaired (pre-diabetes). Calcium 9.3 8.4-10.2 mg/dL Bilirubin Total 1.0 0.0-1.0 mg/dL Aspartate Amino Transferase 20 5-37 U/L Alanine Aminotransferase 25 0-40 U/L Total Protein 6.3 6.5-8.0 g/dL Albumin Level 4.2 3.5-5.0 g/dL Alkaline Phosphatase 63 39-117 U/L Lipid Panel Reviewed date:07/29/2024 04:49:29 PM Interpretation: Performing Lab:[facility], [address] [place] [phone] Notes/Report: Triglycerides 82 <150 mg/dL Desirable Triglyceride: less than 150 mg/dL Borderline High Triglyceride 150-199 mg/dL High Triglyceride: 200-499 mg/dL Very High Triglyceride: greater than or equal to 5OO mg/dL Cholesterol 170 <200 mg/dL Desirable Cholesterol: less than 200 mg/dL Borderline High Cholesterol: 200-239 mg/dL High Cholesterol: greater than 239 mg/dL LDL Cholesterol Calculated 112 <100 mg/dL Desirable LDL: less than 100 mg/dL Near Optimal/Above Optimal LDL: 110-129 mg/dL Borderline High LDL: 130-159 mg/dL High LDL: 160-189 mg/dL Very High LDL: greater than or equal to 190 mg/dL HDL Cholesterol 42 >40 mg/dL Desirable HDL: greater than 40 mg/dL Note: This HDL assay may give artificially low results in patients with liver disease. UA ClnCatch+Micro w/rflx Cul t Reviewed date:07/29/2024 04:53:23 PM Interpretation: Performing Lab:[facility], [address] [place] [phone] Notes/Report: Urine, Clean Catch Color Urine Yellow Appearance Urine Clear PH 5.5 5.0-9.0 Glucose Urine UA Negative Negative mg/dL Urine Blood Negative Negative Specific Freeman - Urine >= 1.030 1.005-1.025 Urine Protein Negative Neg-Trace mg/dL Urine Ketones Negative Negative mg/dL Nitrite Urine Negative Negative Leukocyte Esterase Urine Negative Negative RBC Urine 0-2 0-2 /HPF WBC Urine 0-5 0-5 /HPF Squamous Epithelial Cell Urine 0-2 0-2 /HPF Bacteria Urine None Seen None Seen Hyaline Casts Urine 0-2 0-2 /LPF REASON FOR VISIT yearly fasting labs Encounters Encounter Location Date Provider Diagnosis Freddy Mcdonald MD [address] [place], [place] [phone] 07/29/2024 Freddy Mcdonald Blood tests for routine general physical examination Z00.00 Assessments Encounter Date Diagnosis (ICD Code) Assessment Notes Treatment Notes Treatment Clinical Notes Section Notes 07/29/2024 Blood tests for routine general physical examination (ICD-10 - Z00.00) Plan Of Treatment Next Appt Details Provider Name:Freddy hutton, 08/26/2025 07:15:00 AM, [address], [address], [place], [place], [phone], Provider Name:Freddy Eddy ier, 09/02/2025 09:30:00 AM, [address], [address], [place], [phone], Progress Notes * MANDY KRUGER SDOB: [birth year] (29 yo M)Acc No.[id number]:07/29/2024 Progress Note Patient: MANDY LICEA Provider: Adriano Mcdonald MD :1995 A ge:29 Y S ex:Male Date:07/29/2024 Address:[address] [place] [address] [id number] Subjective: * Chief Complaints: * 1 . Yearly fasting labs. * Medical History: Objective: * Vitals: Assessment: * Assessment: 1. B lood tests for routine general physical examination - Z00.00 (Primary) Plan: * Treatment: * Procedure Codes: 3 6415 VENIPUNCT, ROUTINE* * * The named appointment provid er may or may not be the originator of this progress note, and it is not deemed complete until electronically signed by the appointment provider. Sign off status: Pending * Provider: Adriano Mcdonald MD Date: 0 07/29/2024 Generated for Duane cowan/Hanh/Ceferinoitting on: 1 10:18 AM EDT
--- OUTSIDE RECORDS SUMMARY | 2024-08-06 04:15 | XMS_ITS ---
Author Organization Freddy Mcdonald MD Address [address] [place], [place] [phone] Care Team Providers Care Sales Representative Publications Name Role Phone Freddy Mcdonald Primary Care Provider Results Component Value Reference Range Notes Complete Blood Count Auto Di ff Reviewed date:08/06/2024 05:17:07 PM Interpretation: Performing Lab:[facility], [address] [place] [phone] Notes/Report: White Blood Count 6.7 4.8-10.8 X10*3/uL Red Blood Count 4.86 4.60-5.80 X10*6/uL Hemoglobin 14.2 14.0-18.0 g/dl Hematocrit 41.9 42.0-52.0 % Mean Corpuscular Volume 86.2 80.0-98.0 fL Mean Corpuscular Hemoglobin 29.2 27.0-33.0 pg Mean Corpuscular HGB Conc 33.9 31.0-36.0 g/dl Red Cell Distribution Width 12.4 11.0-16.0 % Platelet Count 319 160-400 X10*3/uL Mean Platelet Volume 11.6 9.4-12.4 fL Neutrophils Percent Auto 50.8 45-73 % Imm Gran Pct Auto 0.3 0.0-0.4 % Lymphocytes Percent Auto 32.2 20-40 % Monocytes Percent Auto 11.2 2-11 % Eosinophils Percent Auto 4.3 0-4 % Basophils Percent Auto 1.2 0-2 % NRBC Pct Auto 0.0 0.0-0.2 /100WBC Neutrophils Absolute Auto 3.4 2.0-8.3 x10*3/u L Imm Gran Abs Auto 0.02 0.00-0.03 X10*3/uL Lymphocytes Absolute Auto 2.2 1.2-4.9 X10*3/u L Monocytes Absolute Auto 0.8 0.1-1.2 X10*3/uL Eosinophils Absolute Auto 0.3 0.0-0.4 X10*3/u L Basophils Absolute Auto 0.1 0.0-0.2 X10*3/uL NRBC Abs Auto 0.000 0.0-0.012 X10*3/uL REASON FOR VISIT 1 week repeat CBC Encounters Encounter Location Date Provider Diagnosis Freddy Mcdonald MD [address] [place] [phone] 08/06/2024 Freddy Mcdonald Leukocytosis D72.829 Assessments Encounter Date Diagnosis (ICD Code) Assessment Notes Treatment Notes Treatment Clinical Notes Section Notes 08/06/2024 Leukocytosis (ICD-10 - D72.829) Plan Of Treatment Next Appt Details Provider Name:Freddy huttno, 08/26/2025 07:15:00 AM, [address] [place] [address], [phone], Provider Name:Freddy hutton, 09/02/2025 09:30:00 AM, [address] [place] [address], [phone], Progress Notes * MANDY KRUGER SDOB: [birth year] (29 yo M)Acc No.[id number]:08/06/2024 Progress Note Patient: MANDY LICEA Provider: Adriano Mcdonald MD :1995 A ge:29 Y S ex:Male Date:08/06/2024 Address:[address] [place] [address] [id number] Subjective: * Chief Complaints: * 1 . 1 week repeat CBC. * Medical History: Objective: * Vitals: Assessment: * Assessment: 1. L eukocytosis - D72.829 (Primary) Plan: * Treatment: * Procedure Codes: 3 6415 VENIPUNCT, ROUTINE* * * The named appointment provid er may or may not be the originator of this progress note, and it is not deemed complete until electronically signed by the appointment provider. Sign off status: Pending * Provider: Adriano Mcdonald MD Date: 0 08/06/2024 Generated for Duane cowan/Hanh/Christophesmitting on: 1 10:18 AM EDT
--- OUTSIDE RECORDS SUMMARY | 2024-08-27 05:30 | XMS_ITS ---
Author Organization Freddy Mcdonald MD Address [address] [place], [place] [id number] Care Team Providers Care Welfare Case Worker Name Role Phone Freddy Mcdonald Primary Care Provider Allergies No Known Allergies REASON FOR VISIT annual visit, A1C is 5.5 Medications Medication SIG (Take, Route, Frequency, Duration) Notes Start Date End Date Status Hydrocortisone Acetate 1 % 1 application to face Once a day for 14 days 07/19/2022 Not-Patel g Singulair 10 MG 1 tablet Orally Once a day 11/14/2017 Active Trelegy Ellipta 100-62.5-25 MCG/ACT 1 puff Inhalation Once a day Active Ventolin HFA 108 (90 Base) MCG/ACT 1 puff as needed Inhalation every 4 hrs for 30 days Active Flovent HFA 220 MCG/ACT INHALE 1 PUFF BY MOUTH TWO TIMES A DAY (RINSE MOUTH AFTER USE) Inhalation Twice a day Active Social History Tobacco Use: Social History Observation [...] Never (0 point) Points 3 Interpretation Negative Vital Signs Blood pressure systolic 122 mm Hg 08/28/19 25 Blood pressure diastolic 70 mm Hg 025 Height 69.5 in 08/27/2024 Weight 183 lbs 08/27/2024 BMI 26.63 kg/m2 08/27/2024 Encounters Encounter Location Date Provider Diagnosis Freddy Mcdonald MD [address] [place] [phone] 08/27/2024 Freddy Mcdonald Annual physical exam Z00.00 and Mild intermittent asthma without complication J45.20 Assessments Encounter Date Diagnosis (ICD Code) Assessment Notes Treatment Notes Treatment Clinical Notes Section Notes 08/27/2024 Annual physical exam (ICD-10 - Z00.00) labs reviewed and discussed with patient 08/27/2024 Mild intermittent asthma without complication (ICD-10 - J45.20) stable, will continue current regiment Plan Of Treatment Treatment Notes Assessment Notes Annual physical exam labs reviewed and d iscussed with patient Mild intermittent asthma wit hout complication stable, will continue current regiment Next Appt Details Provider Name:Freddy hutton, 08/26/2025 07:15:00 AM, [address] [place] [address], [address], [phone], Provider Name:Freddy hutton, 09/02/2025 09:30:00 AM, [address] [place] [address], [address], [phone], Progress Notes * MANDY KRUGER SDOB: [birth year] (29 yo M)Acc No.[id number]:08/27/2024 Progress Notes Patient: MANDY LICEA Provider: Adriano Mcdoanld MD :1995 A ge:29 Y S ex:Male Date:08/27/2024 Address:[address] [place] [address] Tatiana Tejeda [phone] Subjective: * Chief Complaints: * A nnual zqzvgI7G is 5.5 * HPI: D epression Screening: PHQ-9 L ittle interest or pleasure in doing things N ot at all, F eeling down, depressed, or hopeless N ot at all, T rouble falling or staying asleep, or sleeping too much N ot at all, F eeling tired or having little energy N ot at all, P oor appetite or overeating N ot at all, F eeling bad about yourself or that you are a failure, or have let yourself or your family down N ot at all, T rouble concentrating on things, such as reading the newspaper or watching television N ot at all, M oving or speaking so slowly that other people could have noticed; or the opposite, being so fidgety or restless that you have been moving around a lot more than usual N ot at all, T houghts that you would be better off or of hurting yourself in some way N ot at all, T otal Score 0 . I nterpretation and Intervention D epression Screening Findings N egative, F ollow-Up for Depression : review of PHQ-9 found negative result, no follow-up needed. doing well/ allergies are bad but trelegy really works. C ommunication Needs: Communication Needs D oes the patient have a hearing impairment N o, D oes the patient have a vision impairment? N o, D oes the patient have a cognition impairment? N o. S ALISHA Questions: SDOH Questions I n the past year have you been worried about losing housing? N o, I n the past year have you or any family members you live with been unable to get any of the following when it was really needed? Check all that apply: N one. S ymptom(s): patient is a 29 yo male here for annual visit with review of recent labs an d follow up of chronic issues. * ROS: G eneral/Constitutional: Change in appetite d enies. C hills d enies. F ever d enies. O phthalmologic: Blurred vision d enies. D ischarge d enies. P ain d enies. E NT: Decreased hearing d enies. S ore throat d enies.?Swollen glands d enies. E ndocrine: Cold intolerance d enies. E xcessive thirst d enies. H eat intolerance d enies. W eight loss d enies. R espiratory: Cough d enies. S hortness of breath at rest d enies. S hortness of breath with exertion d enies. W heezing d enies. C ardiovascular: Chest pain at rest d enies. C hest pain with exertion?denies. I rregular heartbeat d enies. S hortness of breath d enies. ? G astrointestinal: Abdominal pain d enies. C hange in bowel habits d enies. D iarrhea d enies. N ausea d enies. R ectal bleeding d enies. V omiting d enies . G enitourinary: Blood in urine d enies. D ifficulty urinating d enies. F requent urination d enies. M usculoskeletal: Painful joints d enies. W eakness d enies. ? S kin: Dry skin d enies. I tching d enies. D enies?Mole(s), changes in moles, new moles or any lesions of concern. D enies P hotosensitivity. R paula d enies. N eurologic: Dizziness d enies. F ainting d enies. H eadache?denies. * Medical History: * Surgical History: * Hospitalization/Major Diagno stic Procedure: * Family History: F ather: alive 52 yrs, diagnosed with Diabetes. M other: alive 52 yrs. 2 sister(s) . . No pertinent family medical history. * Social History: T obacco Use: T obacco Use/Smoking P atient is a n onsmoker, A dditional Findings: Tobacco Non-User C urrent non-smoker, currently using no form of tobacco. D rugs/Alcohol: A lcohol Screen D id you have a drink containing alcohol in the past year? Y es, H ow often did you have a drink containing alcohol in the past year? 2 to 3 times a week (3 points), H ow many drinks did you have on a typical day when you were drinking in the past year? 1 or 2 drinks (0 point), H ow often did you have 6 or more drinks on one occasion in the past year? N ever (0 point), P oints 3 , I nterpretation N egative. M iscellaneous: C affeine: yes, frequency:. Children: no. Exercise: yes, boxing. Living with: family. Marital status: single. Occupation: weeks/months/years, works full-time. Travel outside of the [place]: no. * Medications: T akingTrelegy Ellipta 100-62.5-25 MCG/ACT Aerosol Powder Breath Activated 1 puff Inhalation Once a day Singulair 10 MG Tablet 1 tablet Orally Once a day Flovent HFA 220 MCG/ACT Aerosol INHALE 1 PUFF BY MOUTH TWO TIMES A DAY (RINSE MOUTH AFTER USE) Inhalation Twice a day Ventolin HFA 108 (90 Base) MCG/ACT Aerosol Solution 1 puff as needed Inhalation every 4 hrs Taking Trelegy Ellipta 100-62.5-25 MCG/ACT Aerosol Powder Breath Activated 1 puff Inhalation Once a day Taking Singulair 10 MG Tablet 1 tablet Orally Once a day Taking Flovent HFA 220 MCG/ACT Aerosol INHALE 1 PUFF BY MOUTH TWO TIMES A DAY (RINSE MOUTH AFTER USE) Inhalation Twice a day Taking Ventolin HFA 108 (90 Base) MCG/ACT Aerosol Solution 1 puff as needed Inhalation every 4 hrs Not-Taking/PRNHydrocortisone Acetate 1 % Cream 1 application to face Once a day Medication List reviewed and reconciled with the patientNot-Taking/PRN Hydrocortisone Acetate 1 % Cream 1 application to face Once a day Medication List reviewed and reconciled with the patient * Allergies: N .K.D.A.yes[Allergies Verified] Objective: * Vitals: H t: 69.5, Wt: 183, BMI:26.63, BP:122/70, Wt-k.01. * P ast Orders: Lab:Complete Blood Count Aut o Diff * Collection Date 08/06/2024 07/29/2024 Collection Time 08:15 AM 08:00 AM Order Date 08/06/2024 07/29/2024 White Blood Count 6.7 (Ref Range: 4.8-10.8 X10*3/uL) 13.0 H (Ref Range: 4.8-10.8 X10*3/uL) Red Blood Count 4.86 (Ref Range: 4.60-5.80 X10*6/uL) 4.80 (Ref Range: 4.60-5.80 X10*6/uL) Hemoglobin 14.2 (Ref Range: 14.0-18.0 g/dl) 14.0 (Ref Range: 14.0-18.0 g/dl) Hematocrit 41.9 L (Ref Range: 42.0-52.0 %) 41.4 L (Ref Range: 42.0-52.0 %) Mean Corpuscular Volume 86.2 (Ref Range: 80.0-98.0 fL) 86.3 (Ref Range: 80.0-98.0 fL) Mean Corpuscular Hemoglobin 29.2 (Ref Range: 27.0-33.0 pg) 29.2 (Ref Range: 27.0-33.0 pg) Mean Corpuscular HGB Conc 33.9 (Ref Range: 31.0-36.0 g/dl) 33.8 (Ref Range: 31.0-36.0 g/dl) Red Cell Distribution Width 12.4 (Ref Range: 11.0-16.0 %) 12.7 (Ref Range: 11.0-16.0 %) Platelet Count 319 (Ref Range: 160-400 X10*3/uL) 257 (Ref Range: 160-400 X10*3/uL) Mean Platelet Volume 11.6 (Ref Range: 9.4-12.4 fL) 12.1 (Ref Range: 9.4-12.4 fL) Neutrophils Percent Auto 50.8 (Ref Range: 45-73 %) 70.7 (Ref Range: 45-73 %) Imm Gran Pct Auto 0.3 (Ref Range: 0.0-0.4 %) 0.3 (Ref Range: 0.0-0.4 %) Lymphocytes Percent Auto 32.2 (Ref Range: 20-40 %) 14.5 L (Ref Range: 20-40 %) Monocytes Percent Auto 11.2 H (Ref Range: 2-11 %) 12.0 H (Ref Range: 2-11 %) Eosinophils Percent Auto 4.3 H (Ref Range: 0-4 %) 1.8 (Ref Range: 0-4 %) Basophils Percent Auto 1.2 (Ref Range: 0-2 %) 0.7 (Ref Range: 0-2 %) NRBC Pct Auto 0.0 (Ref Range: 0.0-0.2 /100WBC) 0.0 (Ref Range: 0.0-0.2 /100WBC) Neutrophils Absolute Auto 3.4 (Ref Range: 2.0-8.3 x10*3/uL) 9.2 H (Ref Range: 2.0-8.3 x10*3/uL) Imm Gran Abs Auto 0.02 (Ref Range: 0.00-0.03 X10*3/uL) 0.04 H (Ref Range: 0.00-0.03 X10*3/uL) Lymphocytes Absolute Auto 2.2 (Ref Range: 1.2-4.9 X10*3/uL) 1.9 (Ref Range: 1.2-4.9 X10*3/uL) Monocytes Absolute Auto 0.8 (Ref Range: 0.1-1.2 X10*3/uL) 1.6 H (Ref Range: 0.1-1.2 X10*3/uL) Eosinophils Absolute Auto 0.3 (Ref Range: 0.0-0.4 X10*3/uL) 0.2 (Ref Range: 0.0-0.4 X10*3/uL) Basophils Absolute Auto 0.1 (Ref Range: 0.0-0.2 X10*3/uL) 0.1 (Ref Range: 0.0-0.2 X10*3/uL) NRBC Abs Auto 0.000 (Ref Range: 0.0-0.012 X10*3/uL) 0.000 (Ref Range: 0.0-0.012 X10*3/uL) ???Lab:Comprehensive [place]. Panel Fast (Order Date - 07/29/2024) (Collection Date & Time - 07/29/2024 08:00 AM)?ValueReference Range?Apbing529927- 145 - mmol/L?Bilirubin Total1.00.0-1.0 - mg/dL?Aspartate Amino Fojlecwnzuh587-16 - U/L?Alanine Rectsluuuqxspuxs001-36 - U/L?Total Protein6.3L6.5-8.0 - g/dL?Albumin Level4.23.5-5.0 - g/dL?Alkaline Gvoljwwhccz3778-749 - U/L?Potassium4.53.3-5.1 - mmol/L?Xyvepnrr126 96-108 - mmol/L?Carbon Forutct7164-47 - mmol/L?Anion Skf6K00-81 - ?Blood Urea Abjxjjbg841-20 - mg/dL?Creatinine0.920.5-1.4 - mg/dL ?Estimated Glomerular Filt Rate> 60-?Glucose Otlrklq294O12-16 - mg/dL?Calcium9.38.4-10.2 - mg/dL ???Lab:Lipid Panel (Order Date - 07/29/2024) (Collection Date & Time - 07/29/2024 08:00 AM)?ValueReference Range?Lxzvajbpcnlei05<150 - mg/dL?Wismnknjhyp894<200 - mg/dL?LDL Cholesterol Uayzbjugij952D <100 - mg/dL?HDL Bxrijtdutbw74>40 - mg/dL ???Lab:UA ClnCatch+Micro w/rflx Cult (Order Date - 07/29/2024) (Collection Date & Time - 07/29/2024 08:00 AM)?ValueReference Range?Color Urine Yellow-?Appearance UrineClear-?PH5.55.0-9.0 -?Glucose Urine UANegativeNegative - mg/dL?Urine BloodNegativeNegative -?Specific [place] - Urine>= 1.030H1.005-1.025 -?Urine ProteinNegativeNeg-Trace - mg/dL?Urine KetonesNegativeNegative - mg/dL?Nitrite UrineNegative Negative -?Leukocyte Esterase UrineNegativeNegative -?RBC Urine0-2 0-2 - /HPF?WBC Urine0-50-5 - /HPF?Squamous Epithelial Cell Urine 0-20-2 - /HPF?Bacteria UrineNone SeenNone Seen -?Hyaline Casts Urine0-20-2 - /LPF * Examination: G eneral Examination: GENERAL APPEARANCE: w ell developed, well nourished, in no acute distress. HEAD: n ormocephalic, atraumatic. EYES: p upils equal, round, reactive to light and accommodation, sclera non-icteric. EARS: n ormal. ORAL CAVITY: m ucosa moist. THROAT: c lear. NECK/THYROID: n cynthia supple, full range of motion, no cervical lymphadenopathy, no bruits. SKIN: w arm and dry, no suspicious lesions, abnormal with a healing pustule on leg. HEART: r egular rate and rhythm, S1, S2 normal, no murmurs.? LUNGS: c lear to auscultation bilaterally. ABDOMEN: s oft, nontender, nondistended, bowel sounds present, normal, no organomegaly , no masses palpable. RECTAL EXAM: n ot done. MALE GENITOURINARY: c ircumcised, no penile lesions or discharge, no testicular mass, testes descended bilaterally. EXTREMITIES: n o clubbing, cyanosis, or edema. NEUROLOGIC: n onfocal, motor strength normal upper and lower extremities, sensory exam intact. Assessment: * Assessment: 1. A nnual physical exam - Z00.00 (Primary) 2 . M ild intermittent asthma without complication - J45.20 Plan: * Treatment: 2. M ild intermittent asthma without complication Notes: stable, will continue current regiment * Procedure Codes: * Preventive Medicine: Counseling: C are goal follow-up plan: Yandel garrett for abnormal BMI provided?Yes, Sasha weiss Normal BMI Follow-up Adriano simmons encouragement to exercise. * * Sign off status: Completed true * Provider: Adriano Mcdonald MD Date: 0 08/27/2024 Generated for Duane cowan/Hanh/eTransmitting on: 1 10:18 AM EDT History and Physical Notes * HPI (History of Present Illness) Category Sub-Category Detail Notes Category Not es Symptom(s) patient is a 29 yo male here for annual visit with review of recent labs an d follow up of chronic issues. Depression Screening PHQ-9 Little inte rest or pleasure in doing things: Not at all doing well/ allergies are bad but trelegy really works Feeling down, depressed, or hopeless: No t at all Trouble falling or staying asleep, or sl eeping too much: Not at all Feeling tired or having little energy: N ot at all Poor appetite or overeating: Not at all Feeling bad about yourself o r that you are a failure, or have let yourself or your family down: Not at all Trouble concentrating on thi ngs, such as reading the newspaper or watching television: Not at all Moving or speaking so slowly that other people could have noticed; or the opposite, being so fidgety or restless that you have been moving around a lot more than usual: Not at all Thoughts that you would be b usha off or of hurting yourself in some way: Not at all Total Score: 0 Interpretation and Intervention Depression Fabio bean Findings: Negative Follow-Up for Depression: : review of PH Q-9 found negative result, no follow-up needed SDOH Questions SDOH Questions In the past year have you been worried about losing housing?: No In the past year have you or any family members you live with been unable to get any of the following when it was really needed? Check all that apply:: None Communication Needs Communication Needs Does the patient have a hearing impairment: No Does the patient have a vision impairmen t?: No Does the patient have a cognition impair ment?: No Examination Category Sub-Category Detail Notes Category Not es General Examination GENERAL APPEARANCE: well dev eloped, well nourished, in no acute distress HEAD: normocephalic, atrau matic EYES: pupils equal, round, reactive to light and accommodation, sclera non-icteric EARS: normal THROAT: clear NECK/THYROID: neck supple, full ra nge of motion, no cervical lymphadenopathy, no bruits HEART: regular rate and rhy thm, S1, S2 normal, no murmurs LUNGS: clear to auscultatio n bilaterally ABDOMEN: soft, nontender, non distended, bowel sounds present, normal, no organomegaly , no masses palpable NEUROLOGIC: nonfocal, motor stre ngth normal upper and lower extremities, sensory exam intact SKIN: warm and dry, no laury picious lesions, abnormal with a healing pustule on leg EXTREMITIES: no clubbing, cyanosi s, or edema MALE GENITOURINARY: circumcised, no peni le lesions or discharge, no testicular mass, testes descended bilaterally RECTAL EXAM: not done ORAL CAVITY: mucosa moist
[2025-01-10 09:13] VITALS: BP 110/58; PULSE 80; O2SAT 95; BMI 26.9
--- NOTE | 2025-01-10 09:13 | A.OFFVIS_ITS ---
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 Apparently was in usual state health until sometime in the another member when he started developing worsening shortness of breath cough. Having significant wheezing. His symptoms were severe. He went to the ER for further evaluation. There he had a chest x-ray demonstrating hyperinflation of the lungs. He tested negative for RSV, flu and COVID-19. He was treated with a prednisone course in addition to Z-Aguila and given benzonatate. He was not feeling any better continue to uses nebulizer a daily basis. He got some Symbicort from his sister and felt that it was helping him. Now he still complains some shortness of breath and now complaining of pleuritic discomfort primarily his right mid chest. He feels the pain travels from the back to the front. The pain is not reproducible. Based on the fact that his pulse ox was also slightly decreased to 94% and with a normal chest x-ray did request blood work including D-dimer. The D-dimer came back elevated therefore patient needs to ruled out for a thromboembolic event. His pleuritic chest pain is moderate severity. Definite stops in from breathing deeply. As far as his wheezing and chest tightness that is improved. He does have productive cough. He was yellowish in color but now is clearing up some. As far as allergies the patient has had allergy testing many years ago he was noted to have significant allergies. He was offered allergy shots but the patient did not have the time to commit that time. He is currently taking Singulair and as-needed antihistamines. 04/11/2022 the patient is here for a pulmonary follow-up visit. Overall he is feeling a lot better. He continues uses Symbicort as prescribed. Also has the singular medication. Has not required any prednisone. He does have a rescue inhaler that he typically does not use more than twice a week. The patient did have blood work including allergy testing demonstrating significant allergies to environmental allergens in addition to mold. His IgE level was above 800. He is eosinophil level was within normal limits. The patient likely has significant allergic asthma. His pulmonary function studies also demonstrated uncontrolled asthma. Significant small airways disease suggesting the severity of his asthma in addition to that he did undergo a CT scan of the chest that I personally reviewed him. No evidence of any pulmonary emboli. Although he did have significant mosaic pattern consistent with his small airways disease and also significant bronchitis. This is all related to his asthma. At this point the patient is doing well. We did talk about additional therapies including adding muscarinic antagonist. In addition to that he would benefit from allergy shots. Although is difficult making the time for that. The other option for him in the future if he worsens will be to start biologic therapy. Will continue to monitor him closely at this time as he continues his allergy medicines and his maintenance respiratory inhalers. 10/25/2022 the patient is here for pulmonary follow-up visit. The patient is feeling well. He is using the Symbicort every other day. He has not had to use his rescue medicine. We did go over his allergies. He has significant allergies. Specially to mold and dust mites. He does have any appear far not the humidifier running in the house. This has been helpful. She also has a dog that is very allergic to. He has been on allergy medication. Does not need any biologic therapies at this time. The patient will continue his current Symbicort dose. Although, he knows to increase does prior to transitioning over to a different season. The patient usually has worsening symptoms in the winter time. He will call if he has any issues otherwise will see him in a year from now 08/21/2023 the patient is here for a pulmonary follow-up visit. The patient has been in his usual state health until the last 5 days when he started developing worsening respiratory illness. He has been coughing more having chest congestion. Chest tightness. He has been having to use his Symbicort now regularly twice a day. Also has to use the albuterol in between. Denies any fe vers or chills. Positive sick contacts. His actively coughing in the room. He does have diminished breath sounds with a prolonged expiratory phase and some rhonchi. Patient will require some antibiotics at this time. She will continue to use her respiratory medicines. The patient is no better, then, he could start a Medrol pack. Patient should return in 6-8 months. If any worsening symptoms he will call for an earlier assessment. 03/15/2024 the patient is here for a pulmonary follow-up visit. Overall he is feeling better. Although beginning of the fall was hard for him. He has had d eveloping worsening chest tightness and coughing wheezing. Moderate severity. He had been using his nebulizer up to 3 times a day. Now has gotten better. Although he still bringing up some productive phlegm. Yellowish in color. He has been using Flovent and also Symbicort. Did do not seem to be holding him. He does get bad allergies with significant eosinophilia and elevated IgE. Consistent with eosinophilic bronchitis. Still the patient is reluctant to use biologics. Will going to go ahead and optimize his respiratory therapy by switching her over to Trelegy. He can also continue his Singulair. If he continues to have symptoms on the maximum respiratory therapy then biologics will be a good option for him. 01/10/2025 the patient is here for pulmonary follow-up visit. The patient overall has been doing well. Continues on the Trelegy inhaler. This is an very affecting beneficial. More than the other inhalers. He has not had to use his rescue inhaler often. Although the fall in the winter are he is worse months. The patient has not had any recent imaging studies. No recent spirometry. Will have him return in a year and will request pulmonary function studies at that point. He will continue his current Trelegy. If he notices that the Trelegy is no longer able to control his symptoms then we can always consider biologic therapies. For now he seems to be doing okay on that therapy. Will follow-up in a year's time if he has any issues prior to this he can always call for an earlier assessment. [facility] Medical History (Updated 01/10/25 @ 21:12 by Mehdi Bridges MD) Chronic allergic rhinitis Pleuritic chest pain Bronchitis Asthma Social History Patient Tobacco Use Status: Never used Tobacco Review of Systems Const Denies fever(s) Eyes Denies change in vision ENT Reports nasal congestion and Reports nasal discharge Card Denies chest pain Resp Reports change in phlegm color, Reports chest congestion, Reports cough, Denies pain on inspiration, Denies pain with cough and Reports wheezing GI Reports no additional complaints Musc Reports no additional complaints Skin/Breast Denies rash Neuro Reports no additional complaints Tariq/Lymph Denies easy bleeding and Denies easy bruising Aller/Immun Reports wheezing Physical Exam Vital Signs: Last Vital Signs Pulse 80 01/10/25 09:13 BP 110/58 L 01/10/25 09:13 Pulse Ox 95 01/10/25 09:13 Oxygen Delivery Method Room Air 01/10/25 09:13 BMI result Body Mass Index 26.9 Const General: comfortable HEENT Head: Yes atraumatic Eyes General: appearance normal, both eyes and all related structures Neck Neck: Yes supple Chest Chest palpation & inspection: normal inspection of the chest Resp Effort & Inspection: normal respiratory effort Auscultation: clear to auscultation bilaterally, no rales, no rhonchi and no wheezes GI Auscultation: normal bowel sounds Skin General skin exam: no rashes or lesions noted Extrem General: Yes no clubbing, cyanosis or edema Assessment & Plan Assessment & Plan (1) Asthma: Code(s): J45.909 - Unspecified asthma, uncomplicated Category: Medical Qualifiers: Asthma complication type: with acute exacerbation Asthma persistence: persistent Asthma severity: moderate Qualified Code(s): J45.41 - Moderate persistent asthma with (acute) exacerbation (2) Chronic allergic rhinitis: Code(s): J30.9 - Allergic rhinitis, unspecified Category: Medical Plan Trelegy 200mcg continue Singulair BRANDY as needed Zyrtec AM Consider Biologic therapy if worsens: would benefit from Dupixent Follow-up in 12 months Coding Level of Care Code Est Pt Level 4 (53223) Diagnoses Moderate persistent asthma with acute exacerbation J45.41 Asthma complication type: with acute exacerbation Asthma persistence: persistent Asthma severity: moderate Chronic allergic rhinitis J30.9 Time Spent (min) 16
--- OUTSIDE RECORDS SUMMARY | 2025-01-10 10:19 | XMS_ITS | Patient Health Record ---
Author Organization Freddy Mcdonald MD Address [address] [place], [place] [id number] Care Team Providers Care Medical Technologist Generalist Name Role Phone Freddy Mcdonald Primary Care Provider [phone] Allergies No Known Allergies Results Component Value Reference Range Notes SLIDE REVIEW Reviewed date:07/29/2024 12:45:25 PM Interpretation: Performing Lab:[address] [id number] Notes/Report: SLIDE REVIEW VERIFIED Complete Blood Count Auto Di ff Reviewed date:07/30/2024 08:13:05 AM Interpretation: Performing Lab:[address] [id number] Notes/Report: White Blood Count 13.0 4.8-10.8 X10*3/uL [...] 0.0-0.012 X10*3/uL CORRECTED REPORT CORRECTED REPORT Comprehensive [facility]. Panel Fa st Reviewed date:07/29/2024 04:49:18 PM Interpretation: Performing Lab:[facility], [address] [place] [id number] Notes/Report: Sodium 140 135-145 mmol/L Potassium 4.5 [...] Panel Reviewed date:07/29/2024 04:49:29 PM Interpretation: Performing Lab:[facility], [address] [place] [phone] Notes/Report: Triglycerides 82 <150 mg/dL Desirable Triglyceride: [...] t Reviewed date:07/29/2024 04:53:23 PM Interpretation: Performing Lab:[facility], [address] [place] [phone] Notes/Report: Urine, Clean Catch Color Urine Yellow Appearance Urine Clear PH 5.5 5.0-9.0 Glucose Urine UA Negative Negative mg/dL Urine Blood Negative Negative Specific Hobbs - Urine >= 1.030 1.005-1.025 Urine Protein Negative Neg-Trace mg/dL Urine Ketones Negative Negative mg/dL Nitrite Urine Negative Negative Leukocyte Esterase Urine Negative Negative RBC Urine 0-2 0-2 /HPF WBC Urine 0-5 0-5 /HPF Squamous Epithelial Cell Urine 0-2 0-2 /HPF Bacteria Urine None Seen None Seen Hyaline Casts Urine 0-2 0-2 /LPF Complete Blood Count Auto Di ff Reviewed date:08/06/2024 05:17:07 PM Interpretation: Performing Lab:[facility], [address] [place] [id number] Notes/Report: White Blood Count 6.7 4.8-10.8 X10*3/uL [...] AFTER USE) Inhalation Twice a day Active Immunizations Vaccine Route Administration Date Status Comme nts Flu Vaccine IM Intramuscular 02/03/2015 Administered Fluarix Quadrivalent IM Intramuscular 03/03/2017 Administe red TDaP IM Intramuscular 03/27/2019 Administered pt was given the vaccine at the [facility] in [place]. Hepatitis B IM Intramuscular 03/27/2019 Administered pt wa s given the vaccine at [facility] in [place]. Tetanus Unknown 03/27/2019 Administered Fluarix Quadrivalent Unknown [...] Problem Status W/U Status Risk Notes Problem 5654697 Psoriasis (L40.9) Active confirmed Problem 267095488 Mild intermittent asthma without complication (J45.20) Active confirmed Problem 612908334709082 Moderate persistent asthma with acute exacerbation (J45.41) Active confirmed Problem Leukocytosis (996356010) Leukocytosis (D72.829) Active confirmed Problem 102077054 Moderate persistent asthma with exacerbation (J45.41) Active confirmed Problem 714783822 Allergic to dogs (J30.81) Active confirmed Problem 564236198 Cat allergies (J30.81) Active confirmed Vital Signs Blood pressure diastolic 70 mm Hg 08/27/2024 Height 69.5 in 08/27/2024 Blood pressure systolic 122 mm Hg 08/27/2024 Weight 183 lbs 08/27/2024 BMI 26.63 kg/m2 08/27/2024 Encounters Encounter Location Date Provider Diagnosis Freddy Mcdonald MD [address] [place] [id number] 08/27/2024 Freddy Mcdonald Annual physical exam Z00.00 and Mild intermittent asthma without complication J45.20 Freddy Mcdonald MD [address] [place] [address] Drive [address] [place] [address] [id number] 06/22/2024 Freddy Mcdonald Paronychia of great toe L03.039 Freddy Mcdonald MD [address] [place] [id number] 07/29/2024 Freddy Mcdonald Blood tests for routine general physical examination Z00.00 Freddy Mcdonald MD [address] [place] [address] Drive [address] [place] [id number] 08/06/2024 Freddy Mcdonald Leukocytosis D72.829 Assessments Encounter [...] - Z00.00) 08/06/2024 Leukocytosis (ICD-10 - D72.829) 08/27/2024 Mild intermittent asthma without complication (ICD-10 - J45.20) stable, will continue current regiment Plan Of Treatment Next Appt Details Provider Name:Freddy hutton, 08/26/2025 07:15:00 AM, [address] [place] [address], [address] [facility], [place], [place], [phone], Provider Name:Freddy hutton, 09/02/2025 09:30:00 AM, [address], [address], [place], [place], [phone], Insurance Providers Payer Name Payer Address Payer Phone Subscriber Number Group Number Insured Name Patient Relationship to Insured Coverage Start Date Coverage End Date [facility] [address] [address] [place] [address] [id number] MANDY KRUGER Self - patient is the insured [address] [address] [id number] MANDY KRUGER Self - patient is the insured
== END 2025-01-10 09:38 | disposition home or self-care (01) ==
LOC: HO.HPS 09:11
PROVIDERS: PCP Internal Medicine; Visit Provider Hospitalist
DX: J45.41 Moderate persistent asthma with (acute) exacerbation (principal); J30.9 Allergic rhinitis, unspecified
CPT/HCPCS: 99214